=== PATIENT | male | born 1955 | race Caucasian/White ===

== ENCOUNTER 2017-03-02 10:36 | Emergency (ER) | payer OTHER ==
[~2017-03-02] VITALS: Ht 170.2 cm; Wt 84.7 kg
[~2017-03-02 10:36] MED LIST: ALL300 PO; AMT25 PO; FLNIN NAE; LATA0.5S OPB; LOVA40TA4 PO; MOME100A INH; OMEP40CA PO
[2017-03-02 10:48] VITALS: TEMP 36.7; Ht 170.2 cm; Wt 84.7 kg
[2017-03-02] MEDS ORDERED: ONDANSETRON INJ 2 MG/ML 2 ML VIAL IV STA (11:13)
[2017-03-02] MEDS ORDERED: SODIUM CHLORIDE 0.9% 1000ML 1,000 ML IV STA (11:13)
--- NOTE | 2017-03-02 11:32 | EMERGENCY ROOM VISIT NOTE ---
History Report prepared by Steven: Nela Macdonald Under the Supervision of: Dr. Chandrakant Pruitt D.O. First contact with patient: 10:59 Chief Complaint: FACIAL PAIN/INJURY Stated Complaint: JAW PAIN History of Present Illness The patient is a 61 year old male who presents to the Emergency Room with complaints of worsening jaw pain starting 3 days ago. He describes his pain as an ache. It is on the right side of his jaw around his ear. He was unable to sleep because of the pain. The pain feels like a toothache, but he does not have any teeth on that side. He has not had this pain before. He called his doctor who referred him to the ED over concerns of abscess. He has been taking extra strength Tylenol to some relief. He last took some at 0200. He has pain with eating. He denies any drainage from the cheek, fever, chills, nausea, or vomiting. He is on aspirin. He is not on any other blood thinners. 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 Source of History: patient Onset: 3 days ago Position: jaw (right) Quality: ache Timing: worsening Modifying Factors (Worsening): eating Modifying Factors (Relieving): tylenol Associated Symptoms: No fevers, No chills, No nausea, No vomiting Note: Pt denies drainage from cheek. Review of Systems See HPI for pertinent positives & negatives. A total of 10 systems reviewed and were otherwise negative. Past Medical & Surgical Medical Problems: (1) Sarcoid (2) Warthin's tumor Family History Diabetes mellitus Gallbladder disease Heart disease Hypertension Social History Smoking Status: Never Smoker Marital Status: Housing Status: lives with family Current/Historical Medications Scheduled Aclidinium [place] (Tudorza Pressair), 1 PUFF INH BID Allopurinol (Zyloprim), 300 MG PO DAILY Amitriptyline HCl (Elavil), 25 MG PO HS Clarithromycin (Biaxin), 1 TAB PO BID Fluticasone Propionate (Nasal) (Flonase Allergy Relief), 2 SPRAYS ROXANNA DAILY Latanoprost (Xalatan 0.005% Oph Stephanie), 1 DROP OPB HS Lovastatin (Mevacor), 40 MG PO DAILY Mometasone Furoate-Formoterol (Dulera 100/5 Mcg), 1 AER INH BID Omeprazole (Prilosec), 40 MG PO BID Scheduled PRN Albuterol Hfa (Ventolin Hfa), 2 PUFFS INH Q6H PRN for SOB/Wheezing Albuterol Sulf (Proventil 0.083% 2.5MG/3ML), 2.5 MG INH QID PRN for SOB/Wheezing Oxycodone Immediate Rel Tab (Roxicodone Ir), 1-2 TAB PO Q4H PRN for Severe Pain Allergies Coded Allergies: Clavulanic Acid (Verified Allergy, Unknown, BETA-LACTAMASE INHIBITOR ALLERGY, 03/02/17) Doxycycline (Verified Allergy, Unknown, `, 03/02/17) Fluconazole (Verified Allergy, Unknown, 03/02/17) Penicillins (Verified Allergy, Unknown, 03/02/17) Pneumococcal Vaccine (Verified Allergy, Unknown, 03/02/17) Physical Exam Vital Signs Date Time Temp Pulse Resp B/P (MAP) Pulse Ox O2 Delivery O2 Flow Rate FiO2 03/02/17 16:15 82 20 145/91 95 03/02/17 15:35 86 20 146/102 94 Room Air 03/02/17 12:35 82 03/02/17 12:32 81 18 135/91 93 Room Air 03/02/17 11:45 87 20 164/108 93 Room Air 03/02/17 10:48 36.7 97 18 155/106 97 Room Air Physical Exam GENERAL: Patient is awake, alert, very anxious appearing, appears uncomfortable EYES: The conjunctivae are clear. The pupils are round and reactive. EARS, NOSE, MOUTH AND THROAT: The nose is without any evidence of any deformity. Significant swelling over the right parotid, tenderness over the right parotid, oral mucosa appears normal NECK: The neck is supple, ROM is intact, tenderness over the right anterior cervical lymph node chain RESPIRATORY: Normal respiratory effort is noted there is no evidence of wheezing rhonchi or rales CARDIOVASCULAR: Regular rate and rhythm noted there no murmurs rubs or gallops normal S1 normal S2 GASTROINTESTINAL: The abdomen is soft. Bowel sounds are present in all quadrants. Abdomen is nontender MUSCULOSKELETAL/EXTREMITIES: There is no evidence of gross deformity full range of motion is noted in the hips and shoulders SKIN: There is no obvious evidence of any rash. There are no petechiae, pallor or cyanosis noted. NEUROLOGIC: Patient is awake alert and oriented x3 Medical Decision & Procedures ER Provider Diagnostic Interpretation: X-ray results as stated below per interpretation by me and the radiologist. Radiology results as stated below per my review and radiologist interpretation: SINGLE VIEW CHEST CLINICAL HISTORY: Right-sided facial pain. FINDINGS: An AP, portable, upright chest radiograph is compared to study dated 06/26/2015. The examination is degraded by portable technique and patient rotation. The heart is enlarged. The pulmonary vasculature is noncongested. There are low lung volumes. Chronic interstitial thickening is unchanged. No airspace consolidation, large pleural effusion, or pneumothorax is seen. The skeletal structures are osteopenic. The bony thorax is grossly intact. Calcific tendinopathy is noted in left shoulder. IMPRESSION: Cardiomegaly and low lung volumes. There is no acute cardiopulmonary abnormality. Electronically signed by: Lucien Tse M.D. 03/02/2017 12:02 PM Dictated Date/Time: 03/02/2017 12:01 PM ADDENDUM ADDENDUM: There is a prominent superficial veins seen within the posterior substance of the right parotid gland, best seen on axial image #58. There is mild haziness identified around the vessel. This is of indeterminant significance, if any. Ultrasound of the right parotid gland could be considered for further assessment to assess for superficial venous thrombus. Electronically signed by: Lucien Tse M.D. 03/02/2017 2:00 PM Dictated Date/Time: 03/02/2017 1:[address] SCAN OF THE FACIAL BONES WITHOUT IV CONTRAST CLINICAL HISTORY: Right-sided facial pain and swelling. Difficulty with chewing. COMPARISON STUDY: No priors. TECHNIQUE: High-resolution CT scan of the facial bones is performed. Images are reviewed in the axial, sagittal, and coronal planes. IV contrast was not administered for this examination. CT DOSE: 811.10 mGy.cm FINDINGS: The skeletal structures are well mineralized. There is no evidence of facial bone fracture. The bony orbits are intact and the orbital contents are within normal limits. The zygomatic arches, nasal bones, and pterygoid plates are preserved. The maxilla and mandible are intact. Mild arthritic change is seen in the temporomandibular joints. There are no layering blood products within the paranasal sinuses. Trace mucosal thickening is seen throughout the paranasal sinuses. There is a trace left mastoid effusion. The right mastoid air cells are clear. The visualized calvarium and upper cervical spine are maintained. Partially imaged brain parenchyma is within normal limits. The majority of the teeth are missing. No periapical lucency is seen involving the remaining teeth. There is a 1.5 cm nodule incidentally noted in the left parotid gland on axial image #46 of 168. IMPRESSION: 1. No acute facial bone abnormality is identified. No facial bone fracture is seen. 2. The majority of the teeth are absent. No periapical lucency is seen involving the remaining teeth. 3. There is a 1.5 cm nodule incidentally noted in the left parotid gland. This is pathologically indeterminant, and could represent an intraparotid lymph node or possibly a primary parotid lesion such as Warthin's tumor or pleomorphic adenoma. Follow-up with a nonemergent ultrasound of the left parotid gland and outpatient ENT consultation is recommended. Electronically signed by: Lucien Tse M.D. 03/02/2017 1:00 PM Dictated Date/Time: 03/02/2017 12:55 PM ULTRASOUND OF THE PAROTID GLANDS CLINICAL HISTORY: Right facial swelling. Left parotid nodule. COMPARISON STUDY: Facial bone CT dated 03/02/2017. Ultrasound of the neck dated 11/04/2014. TECHNIQUE: Real-time, grayscale, and color Doppler sonography of the parotid glands is performed. Images reviewed in the transverse and longitudinal planes. FINDINGS: Right parotid gland: The right parotid gland is normal in size and homogeneous in echotexture. There is an irregular/tubular appearing hypoechoic and nonvascular structure identified in the posterior aspect of the parotid gland. When correlated with today's CT scan this likely represent thrombosed superficial vein. A tiny adjacent artery is identified. A 2.5 mm nodule in the right parotid is incidentally noted. Left parotid gland: The left parotid gland is normal in size and homogeneous in echotexture. There is an ovoid hypoechoic nodule within the left parotid gland measuring up to 1.4 cm. Internal flow was seen on color imaging. Additional subcentimeter hypoechoic nodules are noted and likely represent intraparotid lymph nodes. IMPRESSION: 1. Findings in the right parotid gland likely represent a thrombosed superficial vein within the posterior substance of the gland. Precautionary sonographic follow-up in 2-3 months time is recommended for reassessment. 2. There is an indeterminant 1.4 cm hypoechoic nodule in the left parotid gland. Difference considerations include an intraparotid lymph node versus a primary parotid nodule such as Warthin's tumor or pleomorphic adenoma. Nonemergent ENT follow-up is recommended. Electronically signed by: Lucien Tse M.D. 03/02/2017 3:47 PM Dictated Date/Time: 03/02/2017 3:34 PM Laboratory Results 03/02/17 11:40 Red Blood Count 5.23, Mean Corpuscular Volume 88.5, Mean Corpuscular Hemoglobin 29.1, Mean Corpuscular Hemoglobin Concent 32.8, Mean Platelet Volume 8.6, Neutrophils (%) (Auto) 53.2, Lymphocytes (%) (Auto) 31.9, Monocytes (%) (Auto) 11.0, Eosinophils (%) (Auto) 3.1, Basophils (%) (Auto) 0.4, Neutrophils # (Auto ) 5.97, Lymphocytes # (Auto) 3.58, Monocytes # (Auto) 1.24, Eosinophils # (Auto ) 0.35, Basophils # (Auto) 0.05 03/02/17 11:40 Test 03/02/17 11:40 White Blood Count 11.23 K/uL (4.8-10.8) Red Blood Count 5.23 M/uL (4.7-6.1) Hemoglobin 15.2 g/dL (14.0-18.0) Hematocrit 46.3 % (42-52) Mean Corpuscular Volume 88.5 fL (80-100) Mean Corpuscular Hemoglobin 29.1 pg (25-34) Mean Corpuscular Hemoglobin Concent 32.8 g/dl (32-36) Platelet Count 331 K/uL (130-400) Mean Platelet Volume 8.6 fL (7.4-10.4) Neutrophils (%) (Auto) 53.2 % Lymphocytes (%) (Auto) 31.9 % Monocytes (%) (Auto) 11.0 % Eosinophils (%) (Auto) 3.1 % Basophils (%) (Auto) 0.4 % Neutrophils # (Auto) 5.97 K/uL (1.4-6.5) Lymphocytes # (Auto) 3.58 K/uL (1.2-3.4) Monocytes # (Auto) 1.24 K/uL (0.11-0.59) Eosinophils # (Auto) 0.35 K/uL (0-0.5) Basophils # (Auto) 0.05 K/uL (0-0.2) RDW Standard Deviation 45.8 fL (36.4-46.3) RDW Coefficient of Variation 14.1 % (11.5-14.5) Immature Granulocyte % (Auto) 0.4 % Immature Granulocyte # (Auto) 0.04 K/uL (0.00-0.02) Prothrombin Time 10.5 SECONDS (9.0-12.0) Prothromb Time International Ratio 1.0 (0.9-1.1) Activated Partial Thromboplast Time 26.9 SECONDS (21.0-31.0) Partial Thromboplastin Ratio 1.0 Anion Gap 5.0 mmol/L (3-11) Est Creatinine Clear Calc Drug Dose 79.7 ml/min Estimated GFR () 93.1 Estimated GFR (Non- 80.3 BUN/Creatinine Ratio 13.4 (10-20) Calcium Level 9.1 mg/dl (8.5-10.1) Total Bilirubin 0.2 mg/dl (0.2-1) Direct Bilirubin 0.1 mg/dl (0-0.2) Aspartate Amino Transf (AST/SGOT) 23 U/L (15-37) Alanine Aminotransferase (ALT/SGPT) 40 U/L (12-78) Alkaline Phosphatase 86 U/L (45-117) Total Protein 7.7 gm/dl (6.4-8.2) Albumin 3.5 gm/dl (3.4-5.0) Amylase Level 58 U/L (25-115) Lipase 187 U/L (73-393) Laboratory results per my review. Medications Administered Medications (Trade) Dose Ordered Sig/Alpesh Route Start Time Stop Time Status Last Admin Dose Admin Sodium Chloride 1,000 ml @ 999 mls/hr Q1H1M STAT IV 03/02/17 11:13 03/02/17 12:13 DC 03/02/17 11:38 999 MLS/HR Ondansetron HCl (Zofran Inj) 4 mg NOW STAT IV 03/02/17 11:13 03/02/17 11:15 DC 03/02/17 11:35 4 MG Morphine Sulfate (MoRPHine SULFATE INJ) 4 mg Q15M PRN IV 03/02/17 11:15 03/02/17 16:41 DC 03/02/17 12:41 4 MG Oxycodone HCl (Roxicodone Immediate Rel 5MG Home Pack) 1 homepack UD ONCE PO 03/02/17 16:15 03/02/17 16:16 DC 03/02/17 16:20 1 HOMEPACK Clarithromycin (Biaxin Tab) 500 mg NOW ONCE PO 03/02/17 16:15 03/02/17 16:16 DC 03/02/17 16:20 500 MG ED Course 1110: The patient was evaluated in room B3B. A complete history and physical examination were performed. 1113: Zofran Inj 4 mg IV, NSS 1000 ml @ 999 mls/hr IV. 1115: Morphine Sulfate 4 mg IV. 1328: I discussed the patient's case with Dr. Kennedy, ENT private practice. He recommends Biaxin and follow up in the office. 1549: Upon reevaluation, the patient is resting comfortably. I discussed the results and treatment plan with him. He verbalized agreement of the treatment plan. He was discharged home. 1615: Clarithromycin 500 mg PO, Oxycodone HCl 1 homepack PO. Medical Decision Medication Reconciliation: I attest that I have personally reviewed the patient' s current medications list. Patient was found to have a slightly elevated blood pressure due to circumstances. I do not believe that the patient requires hypertension monitoring. The patient is a 61-year-old male who presented to the emergency department for evaluation of right facial swelling. The patient is a history of sarcoid in this could be a sequelae of sarcoid but he was sent to the emergency department by his primary care physician for imaging. The patient had a CT of the face which led to an ultrasound. It still clinically could be consistent with parotitis but they felt there could also be some area of thrombophlebitis in the right parotid region but also a lymph node in the left parotid region. I discussed the patient's laboratory radiographic studies with him. I also discussed his case with the on-call ear nose and throat physician. The patient was started on antibiotic as well as pain medication. He has agreed to follow- up with your nose and throat physician this week for further testing. He was encouraged to return to the emergency department immediately if symptoms change worsen or the need arises. Consults Time Called: 1315 Consulting Physician: Dr. Kennedy, ENT private practice Returned Call: [phone] I discussed the patient's case with him. He recommends Biaxin and follow up in the office. Impression Primary Impression: Parotitis Scribe Attestation The scribe's documentation has been prepared under my direction and personally reviewed by me in its entirety. I confirm that the note above accurately reflects all work, treatment, procedures, and medical decision making performed by me. Departure Information Dispostion Home / Self-Care Prescriptions Clarithromycin (BIAXIN) 500 Mg Tab 1 TAB PO BID for 7 Days, #14 TAB Prov: Chandrakant Pruitt, DO 03/02/17 Oxycodone Immediate Rel Tab (ROXICODONE IR) 5 Mg Tab 1-2 TAB PO Q4H Y for Severe Pain, #24 TAB Prov: Chandrakant Pruitt, DO 03/02/17 Referrals Papi Yancey D.O. (PCP) Sunil Choi D.O. Kao, Yi How, M.D. Forms HOME CARE DOCUMENTATION FORM, IMPORTANT VISIT INFORMATION Patient Instructions ED Submandibular Gland Infec, [facility] Additional Instructions Call the ENT physician in the morning to schedule a follow up appointment. Continue all medcations as prescribed.
[2017-03-02] MEDS: MoRPHine SULFATE 4 MG/ML 1 ML CARP\\VIAL IV PRN ×2 (11:36→12:41)
[2017-03-02 11:55] LABS: BASO % 0.4 %; BASO ABS # 0.05 K/uL (0-0.2); COMPLETE YES; EOS % 3.1 %; HEMATOCRIT 46.3 % (42-52); IG% 0.4 %; LYMPH % 31.9 %; LYMPH ABS # 3.58 K/uL (1.2-3.4); MEAN CELL VOLUME 88.5 fL (80-100); MEAN CORPUSCULAR HEMOGLOBIN 29.1 pg (25-34); MEAN CORPUSCULAR HGB CONC 32.8 g/dl (32-36); MEAN PLATELET VOLUME 8.6 fL (7.4-10.4); NEUT % 53.2 %; PLATELET COUNT 331 K/uL (130-400); RED BLOOD COUNT 5.23 M/uL (4.7-6.1); WHITE BLOOD COUNT 11.23 K/uL (4.8-10.8)
--- NOTE | 2017-03-02 12:03 | DIAGNOSTIC IMAGING REPORT ---
SINGLE VIEW CHEST CLINICAL HISTORY: Right-sided facial pain. FINDINGS: An AP, portable, upright chest radiograph is compared to study dated 06/26/2015. The examination is degraded by portable technique and patient rotation. The heart is enlarged. The pulmonary vasculature is noncongested. There are low lung volumes. Chronic interstitial thickening is unchanged. No airspace consolidation, large pleural effusion, or pneumothorax is seen. The skeletal structures are osteopenic. The bony thorax is grossly intact. Calcific tendinopathy is noted in left shoulder. IMPRESSION: Cardiomegaly and low lung volumes. There is no acute cardiopulmonary abnormality. Electronically signed by: Lucien Tse M.D. 03/02/2017 12:02 PM Dictated Date/Time: 03/02/2017 12:01 PM
[2017-03-02 12:05] LABS: PROTHROMBIN TIME (PATIENT) 10.5 SECONDS (9.0-12.0)
[2017-03-02 12:12] LABS: BUN/CREATININE RATIO 13.4 (10-20); CALCIUM 9.1 mg/dl (8.5-10.1); POTASSIUM 4.1 mmol/L (3.5-5.1)
--- NOTE | 2017-03-02 13:01 | DIAGNOSTIC IMAGING REPORT ---
ADDENDUM ADDENDUM: There is a prominent superficial veins seen within the posterior substance of the right parotid gland, best seen on axial image #58. There is mild haziness identified around the vessel. This is of indeterminant significance, if any. Ultrasound of the right parotid gland could be considered for further assessment to assess for superficial venous thrombus. Electronically signed by: Lucien Tse M.D. 03/02/2017 2:00 PM Dictated Date/Time: 03/02/2017 1:[address] SCAN OF THE FACIAL BONES WITHOUT IV CONTRAST CLINICAL HISTORY: Right-sided facial pain and swelling. Difficulty with chewing. COMPARISON STUDY: No priors. TECHNIQUE: High-resolution CT scan of the facial bones is performed. Images are reviewed in the axial, sagittal, and coronal planes. IV contrast was not administered for this examination. CT DOSE: 811.10 mGy.cm FINDINGS: The skeletal structures are well mineralized. There is no evidence of facial bone fracture. The bony orbits are intact and the orbital contents are within normal limits. The zygomatic arches, nasal bones, and pterygoid plates are preserved. The maxilla and mandible are intact. Mild arthritic change is seen in the temporomandibular joints. There are no layering blood products within the paranasal sinuses. Trace mucosal thickening is seen throughout the paranasal sinuses. There is a trace left mastoid effusion. The right mastoid air cells are clear. The visualized calvarium and upper cervical spine are maintained. Partially imaged brain parenchyma is within normal limits. The majority of the teeth are missing. No periapical lucency is seen involving the remaining teeth. There is a 1.5 cm nodule incidentally noted in the left parotid gland on axial image #46 of 168. IMPRESSION: 1. No acute facial bone abnormality is identified. No facial bone fracture is seen. 2. The majority of the teeth are absent. No periapical lucency is seen involving the remaining teeth. 3. There is a 1.5 cm nodule incidentally noted in the left parotid gland. This is pathologically indeterminant, and could represent an intraparotid lymph node or possibly a primary parotid lesion such as Warthin's tumor or pleomorphic adenoma. Follow-up with a nonemergent ultrasound of the left parotid gland and outpatient ENT consultation is recommended. Electronically signed by: Lucien Tse M.D. 03/02/2017 1:00 PM Dictated Date/Time: 03/02/2017 12:55 PM
[2017-03-02] MEDS ORDERED: FLUT0.15 NAE (13:41)
[2017-03-02] MEDS ORDERED: ALLO300T2 PO (13:41)
[2017-03-02] MEDS ORDERED: OMEP40CA41 PO (13:41)
[2017-03-02] MEDS ORDERED: AMIT-203 PO (13:41)
[2017-03-02] MEDS ORDERED: ACLI1AER3 INH (13:45)
[2017-03-02] MEDS ORDERED: VNTHFA/IN INH (13:45)
[2017-03-02] MEDS ORDERED: ALBINS/ INH (13:45)
[2017-03-02] MEDS ORDERED: CLAR500T3 PO (13:48)
[2017-03-02] MEDS ORDERED: OXYC1TAB3 PO (13:48)
--- NOTE | 2017-03-02 15:48 | DIAGNOSTIC IMAGING REPORT ---
ULTRASOUND OF THE PAROTID GLANDS CLINICAL HISTORY: Right facial swelling. Left parotid nodule. COMPARISON STUDY: Facial bone CT dated 03/02/2017. Ultrasound of the neck dated 11/04/2014. TECHNIQUE: Real-time, grayscale, and color Doppler sonography of the parotid glands is performed. Images reviewed in the transverse and longitudinal planes. FINDINGS: Right parotid gland: The right parotid gland is normal in size and homogeneous in echotexture. There is an irregular/tubular appearing hypoechoic and nonvascular structure identified in the posterior aspect of the parotid gland. When correlated with today's CT scan this likely represent thrombosed superficial vein. A tiny adjacent artery is identified. A 2.5 mm nodule in the right parotid is incidentally noted. Left parotid gland: The left parotid gland is normal in size and homogeneous in echotexture. There is an ovoid hypoechoic nodule within the left parotid gland measuring up to 1.4 cm. Internal flow was seen on color imaging. Additional subcentimeter hypoechoic nodules are noted and likely represent intraparotid lymph nodes. IMPRESSION: 1. Findings in the right parotid gland likely represent a thrombosed superficial vein within the posterior substance of the gland. Precautionary sonographic follow-up in 2-3 months time is recommended for reassessment. 2. There is an indeterminant 1.4 cm hypoechoic nodule in the left parotid gland. Difference considerations include an intraparotid lymph node versus a primary parotid nodule such as Warthin's tumor or pleomorphic adenoma. Nonemergent ENT follow-up is recommended. Electronically signed by: Lucien Tse M.D. 03/02/2017 3:47 PM Dictated Date/Time: 03/02/2017 3:34 PM
[2017-03-02 16:15] VITALS: BP 145/91; PULSE 82; O2SAT 95
[2017-03-02] MEDS ORDERED: CLARITHROMYCIN 500 MG TAB PO ONE (16:15)
[2017-03-02] MEDS ORDERED: OXYCODONE IR HOME PACK PO ONE (16:15)
== END 2017-03-02 16:20 | disposition home or self-care (01) ==
LOC: C.EDB 10:38
DX: K11.20 Sialoadenitis, unspecified (principal); D86.9 Sarcoidosis, unspecified; C08.9 Malignant neoplasm of major salivary gland, unspecified; Z83.3 Family history of diabetes mellitus; Z82.49 Family history of ischemic heart disease and other diseases of the circulatory system

== ENCOUNTER 2020-11-18 13:25 | Inpatient (IN) ==
[2020-11-18 14:00] LABS: Basophils # (auto) 0.01 K/uL (0-0.2); Basophils % (auto) 0.1 %; Eosinophils # (auto) 0.02 K/uL (0-0.5); Eosinophils % (auto) 0.1 %; Hematocrit (blood only) 39.5 % (42-52); Immature Granulocytes # (auto) 0.08 K/uL (0.00-0.02); Immature Granulocytes % (auto) 0.5 %; Lymphocytes # (auto) 4.41 K/uL (1.2-3.4); Mean Corpuscular Hemoglobin 29.9 pg (25-34); Mean Corpuscular Hgb Conc 32.9 g/dL (32-36); Mean Corpuscular Volume 90.8 fL (80-100); Mean Platelet Volume 8.4 fL (7.4-10.4); Monocytes # (auto) 1.62 K/uL (0.11-0.59); Monocytes % (auto) 10.3 %; Neutrophils # (auto) 9.61 K/uL (1.4-6.5); Platelet Count 312 K/uL (130-400); RDW Coefficient of Variation 14.7 % (11.5-14.5); Red Blood Count 4.35 M/uL (4.7-6.1); White Blood Count 15.75 K/uL (4.8-10.8)
[2020-11-18] MEDS ORDERED: ALBUT/IPRATROP 3MG/0.5MG NEB 3 ML VIAL NEB STA (14:00)
[2020-11-18 14:10] LABS: Partial Thromboplastin Ratio 0.9; Partial Thromboplastin Time 23.8 Seconds (21.0-31.0)
[2020-11-18] MEDS ORDERED: methylPREDNISolone 125 MG/2 ML VIAL IV STA (14:13)
[2020-11-18 14:18] LABS: Alanine Aminotransferase 23 U/L (12-78); Albumin Level 2.5 gm/dl (3.4-5.0); Aspartate Aminotransferase 24 U/L (15-37); BUN Creatinine Ratio 15.3 (10-20); Blood Urea Nitrogen 18 mg/dl (7-18); Carbon Dioxide 24 mmol/L (21-32); Chloride 109 mmol/L (98-107); Creatinine Clr Calc Pharmacy 67.9 ml/min; Est GFR (African American) 74.9; Est GFR (Non-African American) 64.6; Glucose 133 mg/dl (70-99); Magnesium 2.1 mg/dl (1.8-2.4); Sodium 139 mmol/L (136-145)
--- NOTE | 2020-11-18 14:22 | Emergency Department Note ---
Impression & Plan Hypoxia, SOB (shortness of breath), Pneumonia, Wheezing ED Provider Note NAME: MAGDIEL BENJAMIN AGE: 65 SEX: M : 1955 ARRIVES VIA: Ambulance INFORMANT: [Patient] ED PROVIDER(S): [Lucien Baez MD] CHIEF COMPLAINT: Short of breath HISTORY OF PRESENT ILLNESS: The patient is a 65-year-old male who states that he had prostate surgery at [facility]. He was discharged yesterday. Today, he began feeling short of breath. He was breathing quickly. He summoned the ambulance and was brought for evaluation. No medications given in route. The patient states that his abdominal incisions are doing well, he has minimal pain from the surgery. The patient states that he does have a Sahni catheter in place since the surgery. The patient denies any chest pain. There has been no cough or fever. He has been vaccinated for COVID-19 and tested negative before his surgical work. The patient does have sarcoid. He is not sure if he has a history of COPD or not. He is not a smoker. He does have some inhalers to use for his lungs at home. Of note, the patient is currently on Cipro. This was prescribed as he left the hospital. He believes it is because of his prostate surgery. REVIEW OF SYSTEMS: See HPI for pertinent positives and negatives. A total of ten systems were reviewed and were otherwise negative. PMHx/PSHx: See Below SOCIAL HISTORY: See Below. PHYSICAL EXAM: GENERAL: Patient is in mild respiratory distress. HEENT: No acute trauma, normocephalic atraumatic, mucous membranes moist, no nasal congestion, no scleral icterus. NECK: No stridor, no adenopathy, no meningismus, trachea is midline. LUNGS: Increased respiratory rate, no rales, he does have bilateral wheezing. Mild respiratory distress. HEART: Without murmurs gallops or rubs, regular rate and rhythm. ABDOMEN: Soft, mildly diffusely tender, bowel sounds positive, no hernias, no peritonitis. Surgical incisions healing without significant erythema or drainage. EXTREMITIES: No cyanosis or edema, full range of motion of all the joints without pain or difficulty, no signs for acute trauma. NEUROLOGIC: Oriented x 3, no acute motor or sensory deficits, no focal weakness. SKIN: No rash, no jaundice, no diaphoresis. DIFFERENTIAL DIAGNOSIS: Reactive airway disease, pneumonia, pneumothorax, COPD, CHF, infection, cardiac ischemia, pulmonary embolism, bronchitis, musculoskeletal, gastrointestinal, as well as other pathologies. EMERGENCY DEPARTMENT COURSE/PROCEDURES: ECG: Indication was shortness of breath. The ECG shows a sinus tachycardia with a rate of 103. There is a right bundle branch block. No concerning ST elevation, no PVCs. The QTc is 526. Compared to an ECG from 21 June 2019, the right bundle branch block is new. The rate has increased. Continuous Cardiac Monitoring: An order was placed for continuous cardiac monitoring. The monitor shows a rate of 93 with normal sinus rhythm. Critical Care Note: I have personally spent 39 minutes of critical care time in the direct management of this patient. This includes bedside care, i nterpretation of diagnostic studies, and testing, discussion with consultants, patient, and family members, and other required patient management activities. This 39 minutes is in excess of all separately billable procedures. MEDICAL DECISION MAKING: There is a moderate leukocytosis which could be consistent with infection. No worrisome anemia. There is a normal platelet count. No coagulopathy. Renal panel testing does not show kidney failure or significant electrolyte abnormality. No liver enzyme elevation. Procalcitonin level was not elevated. Lactic acid level was not elevated making sepsis less likely. ECG shows a sinus tachycardia, no acute ischemia. Cardiac enzyme testing x1 is not consistent with acute cardiac injury. Covid and influenza testing returned negative. Chest film did not show pneumonia or CHF. There was no pneumothorax. Chest CT showed a potential old PE, nothing felt acute. There were some areas of congestion consistent with bronchitis and/or bronchiolitis. Patient was hypoxic when he arrived, he seemed short of breath. He was wheezing. Patient received a DuoNeb. He was given IV ceftriaxone as empiric antibiotic coverage. He was given IV Solu-Medrol to help with the wheezing. The patient is requiring oxygen. He presents wheezing. He is hypoxic. He does have findings of bronchiolitis or maybe bronchitis on CT imaging. Certainly, a developing pneumonia is a concern. I do think the patient requires a hospital stay. I spoke to the patient and case management. The on-call hospitalist was consulted. Past Med/Surg History Medical History Hyperlipidemia Interstitial lung disease LETICIA on CPAP Prostate cancer Pulmonary sarcoidosis Sarcoid Warthin's tumor Surgical History (Updated 11/18/20 @ 18:02 by Kerry Salomon PA-C) H/O vasectomy History of lumbar surgery Hx of colonoscopy with polypectomy S/P prostatectomy S/P skin neoplasm resection Family History (Updated 11/18/20 @ 18:03 by Kerry Salomon PA-C) Mother Hypertension Glaucoma Diabetes Father Prostate cancer Diabetes Coronary heart disease ID Sister Glaucoma Other No significant family history Social History Smoking Status: Former smoker packs per day: 2; Years Smoked: 25; Hx Alcohol Use: No Hx Substance Use: No Preferred Language: Spanish Communication Ability: Effective Pharmacy Intake Coordinator Required: No Beliefs That Will Affect Care: None Current Living Situation: Spouse Other Information That Helps Us Care for You: No Feels Safe at Home: Yes Safety Concerns: Feels Safe At This Time Assistive Devices: CPAP Allergies Allergies Allergy/AdvReac Type Severity Reaction Status Date / Time clavulanic acid Allergy Unknown BETA-LACTAMASE Verified 11/18/20 14:35 INHIBITOR ALLERGY doxycycline Allergy Unknown ` Verified 11/18/20 14:35 fluconazole Allergy Unknown Verified 11/18/20 14:35 Penicillins Allergy Unknown Verified 11/18/20 14:35 pneumococcal vaccine Allergy Unknown Verified 11/18/20 14:35 Home Meds Home Medications Medication Instructions Recorded Confirmed albuterol sulfate 2 inh INHALATION QID PRN 06/21/19 11/18/20 allopurinol 300 mg PO DAILY 06/21/19 11/18/20 amitriptyline 25 mg PO HS 06/21/19 11/18/20 aspirin 81 mg PO QAM 06/21/19 11/18/20 azelastine 2 spray INTRANASAL BID PRN 06/21/19 11/18/20 latanoprost 1 drp OPB PM 06/21/19 11/18/20 metoprolol succinate 50 mg PO DAILY 06/21/19 11/18/20 mometasone-formoterol 2 inh INHALATION BID 06/21/19 11/18/20 omeprazole 20 mg PO QAM 06/21/19 11/18/20 rosuvastatin 20 mg PO DAILY 06/21/19 11/18/20 tiotropium bromide [Spiriva with 1 cap INHALATION DAILY 06/21/19 11/18/20 HandiHaler] cholecalciferol (vitamin D3) 25 mcg PO DAILY 11/18/20 11/18/20 ciprofloxacin HCl 500 mg PO BID 11/18/20 11/18/20 docusate sodium 100 mg PO BID 11/18/20 11/18/20 losartan 50 mg PO DAILY 11/18/20 11/18/20 oxycodone-acetaminophen 1 tab PO Q6 PRN 11/18/20 11/18/20 Results & Data (ED) Vital Signs Vital Signs - 24 hr 11/18/20 13:17 11/18/20 13:31 11/18/20 13:32 Temperature 36.9 C Temperature Source Oral Pulse Rate 105 H 106 H Pulse Rate [Left Finger] Pulse Rate from SpO2 Sensor 105 H Respiratory Rate 27 H 24 Respiratory Effort / Characteristics Labored Labored Respiratory Depth Shallow Respiratory Pattern Tachypnea Rapid/Shallow Blood Pressure 121/91 121/91 Blood Pressure Mean 101 101 Pulse Oximetry 93 90 92 Oxygen Delivery Method Aerosol Mask Room Air Oxygen Flow Rate 5 Sepsis Recent Fever Within 48 Hours No Sepsis New/Unexplained Change in Mental Status No Sepsis Action Taken by Nursing MD Previously Notified Pulse Oximetry Post Tiitration 97 11/18/20 13:49 11/18/20 14:00 11/18/20 14:06 Temperature Temperature Source Pulse Rate 96 H Pulse Rate [Left Finger] 93 H Pulse Rate from SpO2 Sensor 96 H Respiratory Rate 40 H 26 H 20 Respiratory Effort / Characteristics Labored Moaning Respiratory Depth Respiratory Pattern Blood Pressure 117/76 Blood Pressure Mean 89 Pulse Oximetry 97 98 98 Oxygen Delivery Method Oxymask Oxymask Oxygen Flow Rate 5 5 Sepsis Recent Fever Within 48 Hours Sepsis New/Unexplained Change in Mental Status Sepsis Action Taken by Nursing Pulse Oximetry Post Tiitration 11/18/20 14:30 11/18/20 15:59 11/18/20 16:00 Temperature Temperature Source Pulse Rate 107 H 97 H 95 H Pulse Rate [Left Finger] Pulse Rate from SpO2 Sensor 105 H 94 H 95 H Respiratory Rate 23 19 23 Respiratory Effort / Characteristics Respiratory Depth Respiratory Pattern Blood Pressure 110/74 144/78 H 157/81 H Blood Pressure Mean 86 100 106 Pulse Oximetry 89 L 93 97 Oxygen Delivery Method Room Air Oxymask Oxymask Oxygen Flow Rate 4 4 Sepsis Recent Fever Within 48 Hours Sepsis New/Unexplained Change in Mental Status Sepsis Action Taken by Nursing Pulse Oximetry Post Tiitration 11/18/20 16:30 11/18/20 16:31 11/18/20 17:00 Temperature Temperature Source Pulse Rate 96 H Pulse Rate [Left Finger] Pulse Rate from SpO2 Sensor 99 H 100 H 96 H Respiratory Rate Respiratory Effort / Characteristics Respiratory Depth Respiratory Pattern Blood Pressure 147/82 H 156/75 H Blood Pressure Mean 103 102 Pulse Oximetry 94 94 95 Oxygen Delivery Method Oxymask Oxymask Oxygen Flow Rate 4 4 Sepsis Recent Fever Within 48 Hours Sepsis New/Unexplained Change in Mental Status Sepsis Action Taken by Nursing Pulse Oximetry Post Tiitration 11/18/20 17:30 Temperature Temperature Source Pulse Rate 98 H Pulse Rate [Left Finger] Pulse Rate from SpO2 Sensor Respiratory Rate Respiratory Effort / Characteristics Respiratory Depth Respiratory Pattern Blood Pressure 157/88 H Blood Pressure Mean 111 Pulse Oximetry 97 Oxygen Delivery Method Oxygen Flow Rate Sepsis Recent Fever Within 48 Hours Sepsis New/Unexplained Change in Mental Status Sepsis Action Taken by Nursing Pulse Oximetry Post Tiitration Home Medications Current Medication List: was personally reviewed by me Laboratory Data Attestation: I reviewed the patient's lab results. Result diagrams: 11/18/20 13:45 11/18/20 13:45 Lab Results 11/18/20 11/18/20 11/18/20 Range/Units 13:45 13:45 13:45 WBC 15.75 H (4.8-10.8) K/uL RBC 4.35 L (4.7-6.1) M/uL Hgb 13.0 L (14.0-18.0) g/dL Hct 39.5 L (42-52) % MCV 90.8 (80-100) fL MCH 29.9 (25-34) pg MCHC 32.9 (32-36) g/dL RDW Std Deviation 49.0 H (36.4-46.3) fL RDW Coeff of Aaron 14.7 H (11.5-14.5) % Plt Count 312 (130-400) K/uL MPV 8.4 (7.4-10.4) fL Immature Gran % (Auto) 0.5 % Neut % (Auto) 61.0 % Lymph % (Auto) 28.0 % [place] % (Auto) 10.3 % Eos % (Auto) 0.1 % Baso % (Auto) 0.1 % Neut # (Auto) 9.61 H (1.4-6.5) K/uL Lymph # (Auto) 4.41 H (1.2-3.4) K/uL [place] # (Auto) 1.62 H (0.11-0.59) K/uL Eos # (Auto) 0.02 (0-0.5) K/uL Baso # (Auto) 0.01 (0-0.2) K/uL Immature Gran # (Auto) 0.08 H (0.00-0.02) K/uL PT 10.0 (9.0-12.0) Seconds INR 1.0 (0.9-1.1) APTT 23.8 (21.0-31.0) Seconds PTT Ratio 0.9 ABG pH (7.35-7.45) ABG pCO2 (35-46) mmHg ABG pO2 (80-95) mmHg ABG HCO3 (19-24) mmol/L ABG O2 Saturation (90-95) % ABG Base Excess (-9-1.8) mEq/L [place]aurus Test (Pos) Barometric Pressure mm/Hg Oxygen Given Sodium 139 (136-145) mmol/L Potassium 4.0 (3.5-5.1) mmol/L Chloride 109 H (98-107) mmol/L Carbon Dioxide 24 (21-32) mmol/L Anion Gap 6.0 (3-11) BUN 18 (7-18) mg/dl Creatinine 1.17 (0.6-1.4) mg/dl Est Cr Clr Drug Dosing 67.9 ml/min Est GFR ( Amer) 74.9 Est GFR (Non-Af Amer) 64.6 BUN/Creatinine Ratio 15.3 (10-20) Glucose 133 H (70-99) mg/dl Lactate (0.4-2.0) mmol/L Calcium 8.0 L (8.5-10.1) mg/dl Magnesium 2.1 (1.8-2.4) mg/dl Total Bilirubin 0.2 (0.2-1) mg/dl AST 24 (15-37) U/L ALT 23 (12-78) U/L Alkaline Phosphatase 76 (45-117) U/L Troponin I < 0.015 (0-0.045) ng/ml Total Protein 6.5 (6.4-8.2) gm/dl Albumin 2.5 L (3.4-5.0) gm/dl Globulin 4.0 (2.5-4.0) gm/dl Albumin/Globulin Ratio 0.6 L (0.9-2) Procalcitonin (0-0.5) ng/ml COVID-19 Eval Order SARS-CoV-2 (PCR) (Negative) Influenza Type A (PCR) (Neg) Influenza Type B (PCR) (Neg) RSV (RT-PCR) (Neg) 11/18/20 11/18/20 11/18/20 Range/Units 13:45 14:20 14:20 WBC (4.8-10.8) K/uL RBC (4.7-6.1) M/uL Hgb (14.0-18.0) g/dL Hct (42-52) % MCV (80-100) fL MCH (25-34) pg MCHC (32-36) g/dL RDW Std Deviation (36.4-46.3) fL RDW Coeff of Aaron (11.5-14.5) % Plt Count (130-400) K/uL MPV (7.4-10.4) fL Immature Gran % (Auto) % Neut % (Auto) % Lymph % (Auto) % [place] % (Auto) % Eos % (Auto) % Baso % (Auto) % Neut # (Auto) (1.4-6.5) K/uL Lymph # (Auto) (1.2-3.4) K/uL [place] # (Auto) (0.11-0.59) K/uL Eos # (Auto) (0-0.5) K/uL Baso # (Auto) (0-0.2) K/uL Immature Gran # (Auto) (0.00-0.02) K/uL PT (9.0-12.0) Seconds INR (0.9-1.1) APTT (21.0-31.0) Seconds PTT Ratio ABG pH (7.35-7.45) ABG pCO2 (35-46) mmHg ABG pO2 (80-95) mmHg ABG HCO3 (19-24) mmol/L ABG O2 Saturation (90-95) % ABG Base Excess (-9-1.8) mEq/L [place]aurus Test (Pos) Barometric Pressure mm/Hg Oxygen Given Sodium (136-145) mmol/L Potassium (3.5-5.1) mmol/L Chloride (98-107) mmol/L Carbon Dioxide (21-32) mmol/L Anion Gap (3-11) BUN (7-18) mg/dl Creatinine (0.6-1.4) mg/dl Est Cr Clr Drug Dosing ml/min Est GFR ( Amer) Est GFR (Non-Af Amer) BUN/Creatinine Ratio (10-20) Glucose (70-99) mg/dl Lactate (0.4-2.0) mmol/L Calcium (8.5-10.1) mg/dl Magnesium (1.8-2.4) mg/dl Total Bilirubin (0.2-1) mg/dl AST (15-37) U/L ALT (12-78) U/L Alkaline Phosphatase (45-117) U/L Troponin I (0-0.045) ng/ml Total Protein (6.4-8.2) gm/dl Albumin (3.4-5.0) gm/dl Globulin (2.5-4.0) gm/dl Albumin/Globulin Ratio (0.9-2) Procalcitonin 0.09 (0-0.5) ng/ml COVID-19 Eval Order CovFluRsv at [facility] SARS-CoV-2 (PCR) NEGATIVE (Negative) Influenza Type A (PCR) Negative (Neg) Influenza Type B (PCR) Negative (Neg) RSV (RT-PCR) Negative (Neg) 11/18/20 11/18/20 Range/Units 15:54 17:32 WBC (4.8-10.8) K/uL RBC (4.7-6.1) M/uL Hgb (14.0-18.0) g/dL Hct (42-52) % MCV (80-100) fL MCH (25-34) pg MCHC (32-36) g/dL RDW Std Deviation (36.4-46.3) fL RDW Coeff of Aaron (11.5-14.5) % Plt Count (130-400) K/uL MPV (7.4-10.4) fL Immature Gran % (Auto) % Neut % (Auto) % Lymph % (Auto) % [place] % (Auto) % Eos % (Auto) % Baso % (Auto) % Neut # (Auto) (1.4-6.5) K/uL Lymph # (Auto) (1.2-3.4) K/uL [place] # (Auto) (0.11-0.59) K/uL Eos # (Auto) (0-0.5) K/uL Baso # (Auto) (0-0.2) K/uL Immature Gran # (Auto) (0.00-0.02) K/uL PT (9.0-12.0) Seconds INR (0.9-1.1) APTT (21.0-31.0) Seconds PTT Ratio ABG pH 7.36 (7.35-7.45) ABG pCO2 41 (35-46) mmHg ABG pO2 89 (80-95) mmHg ABG HCO3 23 (19-24) mmol/L ABG O2 Saturation 97.0 H (90-95) % ABG Base Excess -2.5 (-9-1.8) mEq/L [place] Test Pos (Pos) Barometric Pressure 731.4 mm/Hg Oxygen Given 3.5 L Sodium (136-145) mmol/L Potassium (3.5-5.1) mmol/L Chloride (98-107) mmol/L Carbon Dioxide (21-32) mmol/L Anion Gap (3-11) BUN (7-18) mg/dl Creatinine (0.6-1.4) mg/dl Est Cr Clr Drug Dosing ml/min Est GFR ( Amer) Est GFR (Non-Af Amer) BUN/Creatinine Ratio (10-20) Glucose (70-99) mg/dl Lactate 1.2 (0.4-2.0) mmol/L Calcium (8.5-10.1) mg/dl Magnesium (1.8-2.4) mg/dl Total Bilirubin (0.2-1) mg/dl AST (15-37) U/L ALT (12-78) U/L Alkaline Phosphatase (45-117) U/L Troponin I (0-0.045) ng/ml Total Protein (6.4-8.2) gm/dl Albumin (3.4-5.0) gm/dl Globulin (2.5-4.0) gm/dl Albumin/Globulin Ratio (0.9-2) Procalcitonin (0-0.5) ng/ml COVID-19 Eval Order SARS-CoV-2 (PCR) (Negative) Influenza Type A (PCR) (Neg) Influenza Type B (PCR) (Neg) RSV (RT-PCR) (Neg) Administered Medications Albuterol (Albut/Ipratrop 3mg/0.5mg Neb 3 Ml Vial) 3 ml NEB [id number] SUZY Stop: 12/18/20 19:59 Last Admin: 11/18/20 19:54 Dose: 3 ml Documented by: [id number] Amitriptyline HCl (Amitriptyline Hcl 25 Mg Tab) 25 mg PO HS SUZY Stop: 12/18/20 20:59 Last Admin: 11/18/20 21:39 Dose: 25 mg Documented by: [id number] Docusate Sodium (Docusate Sodium 100 Mg Cap) 100 mg PO BID SUZY Stop: 12/18/20 20:59 Last Admin: 11/18/20 21:39 Dose: 100 mg Documented by: [id number] Fluticasone/Vilanterol (Fluticasone/Vilanterol 200/25mcg 14 Puffs/Inhaler) 1 puffs INH QPM SUZY; Protocol Stop: 12/18/20 20:59 Last Admin: 11/18/20 21:40 Dose: 1 puffs Documented by: [id number] Sodium Chloride (Nss 1000ml) 1,000 mls @ 100 mls/hr IV .Q10H SUZY Stop: 11/19/20 05:44 Last Admin: 11/18/20 21:08 Dose: 100 mls/hr Documented by: [id number] Methylprednisolone 40 mg/ (Syringe) 0.64 mls @ 1.5 mls/min IV BID SUZY Stop: 12/18/20 20:59 Last Admin: 11/18/20 21:39 Dose: 1.5 mls/min Documented by: [id number] Cefepime HCl 2,000 mg/ Syringe 20 mls @ 5 mls/min IV Q8H SUZY; Protocol Stop: 11/20/20 20:59 Last Admin: 11/18/20 21:07 Dose: 5 mls/min Documented by: [id number] Vancomycin HCl 2,000 mg/ (Sodium Chloride) 540 mls @ 200 mls/hr IV ONE ONE Stop: 11/19/20 00:11 Last Admin: 11/18/20 21:08 Dose: 200 mls/hr Documented by: [id number] Latanoprost (Latanoprost 0.005% Op Soln 2.5 Ml Btl) 1 drops OPB PM SUZY Stop: 12/18/20 20:59 Last Admin: 11/18/20 21:40 Dose: 1 drops Documented by: [id number] Metronidazole (Metronidazole 500 Mg Tab) 500 mg PO TID SUZY Stop: 11/20/20 20:59 Last Admin: 11/18/20 21:39 Dose: 500 mg Documented by: [id number] Polyethylene Glycol (Polyethylene (Miralax) 17 Gm Pack) 17 gm PO DAILY SUZY Stop: 12/18/20 19:18 Last Admin: 11/18/20 21:12 Dose: 17 gm Documented by: [id number] Discontinued Medications Albuterol (Albut/Ipratrop 3mg/0.5mg Neb 3 Ml Vial) 3 ml NEB NOW STA Stop: 11/18/20 14:01 Last Admin: 11/18/20 14:05 Dose: 3 ml Documented by: [id number] Ceftriaxone Sodium (Rocephin) 2,000 mg in 70 mls @ 140 mls/hr IV NOW STA Stop: 11/18/20 15:54 Last Infusion: 11/18/20 16:50 Dose: 0 mls/hr Documented by: [id number] Admin: 11/18/20 16:20 Dose: 140 mls/hr Documented by: [id number] Ioversol (Optiray 320 125ml) 118 ml IV ONCE ONE Stop: 11/18/20 14:27 Last Admin: 11/18/20 14:26 Dose: 118 ml Documented by: [id number] Methylprednisolone (Methylprednisolone 125 Mg/2 Ml Vial) 60 mg IV NOW STA Stop: 11/18/20 14:14 Last Admin: 11/18/20 14:23 Dose: 60 mg Documented by: [id number] Imaging Data Radiologist's Impression: XR chest 1V portable HISTORY: Shortness of breath. COMPARISON: Chest 06/21/2019. FINDINGS: There are low lung volumes. The heart remains mildly enlarged. There is mild diffuse interstitial thickening which is likely chronic. No new focal lung consolidations to suggest pneumonia. No evidence for pulmonary edema. IMPRESSION: No significant change compared to the prior study. No acute process. CHEST CTA for PULMONARY ARTERIES CT DOSE: 624.78 mGy.cm HISTORY: Shortness of breath. TECHNIQUE: Multiaxial CT images of the chest were performed following the intravenous administration of contrast to evaluate the pulmonary arteries. Maximal intensity projection images were also obtained. A dose lowering technique was utilized adhering to the principles of ALARA. COMPARISON STUDY: 06/21/2019. FINDINGS: Limited views of the upper abdomen demonstrate a normal liver, spleen, and adrenal glands. No pleural or pericardial effusions. Normal caliber thoracic aorta with no evidence for dissection. The heart is normal in size. There is a linear nonocclusive filling defect seen within a left lower lobe segmental/subsegmental pulmonary artery best seen on image 127. This is technically age indeterminate but favors a chronic pulmonary embolus. This was not present on the 2019 examination. No additional filling defects identified within the pulmonary arteries. A few mildly enlarged mediastinal lymph nodes remain stable. No hilar lymphadenopathy. Normal caliber esophagus. No suspicious lytic or blastic osseous lesions. No change in the irregular scarlike densities within the bilateral upper lobes. No pneumothorax. Stable 7 mm irregular nodule within the right middle lobe on image 154. Stable irregular densities are also noted within the right lower lobe. The tree-in-bud nodular opacities seen within the bilateral lower lobes have slightly progressed. There is mild bronchiectasis and bronchial wall thickening within the lungs. IMPRESSION: 1. A single linear filling defect seen within a left lower lobe segmental/subsegmental pulmonary artery. This is technically age indeterminate but favors a chronic pulmonary embolus. 2. Scattered irregular densities seen throughout the lungs. These demonstrate greater than 2 year stability and therefore favor areas of scarring. 3. Mild bronchial wall thickening and mild bronchiectasis is also likely chronic. 4. Slight increase in the tree-in-bud nodular opacities within the bilateral lower lobes. This favors an acute on chronic bronchiolitis. Discharge Plan Visit Data Chief Complaint: Hyperventilation Stated Complaint: sob ED Provider: Lucien Baez Discharge Problem: Hypoxia, SOB (shortness of breath), Pneumonia, Wheezing Patient Disposition: Admitted As Inpatient Condition: Fair Discharge Instructions Interventions: ED Discharge Assessment Last Done: 11/18/20 18:35 Discharge Problem: Pneumonia Qualifiers: Pneumonia type: due to unspecified organism Laterality: unspecified laterality Lung location: unspecified part of lung Qualified Code(s): J18.9 - Pneumonia, unspecified organism
[2020-11-18 14:23] LABS: Albumin Globulin Ratio 0.6 (0.9-2); Alkaline Phosphatase 76 U/L (45-117); Bilirubin,Total 0.2 mg/dl (0.2-1); Total Protein 6.5 gm/dl (6.4-8.2); Troponin I < 0.015 ng/ml (0-0.045)
[2020-11-18] MEDS ORDERED: OPTIRAY 320 125ml IV ONE (14:26)
--- NOTE | 2020-11-18 14:37 | XRay Report ---
XR chest 1V portable HISTORY: Shortness of breath. COMPARISON: Chest 06/21/2019. FINDINGS: There are low lung volumes. The heart remains mildly enlarged. There is mild diffuse inters titial thickening which is likely chronic. No new focal lung consolidations to suggest pneumonia. No evidence for pulmonary edema. IMPRESSION: No significant change compared to the prior study. No acute process. ACT 112: Negative or not required by law. Electronically signed by: Woody Brito M.D. 11/18/2020 2:36 PM
--- NOTE | 2020-11-18 15:17 | CT Scan Report ---
CHEST CTA for PULMONARY ARTERIES CT DOSE: 624.78 mGy.cm HISTORY: Shortness of breath. TECHNIQUE: Multiaxial CT images of the chest were performed following the intravenous administration of contrast to evaluate the pulmonary arteries. Maximal intensity projection images were also obtaine d. A dose lowering technique was utilized adhering to the principles of ALARA. COMPARISON STUDY: 06/21/2019. FINDINGS: Limited views of the upper abdomen demonstrate a normal liver, spleen, and adrenal glands. No pleural or pericardial effusions. Normal caliber thoracic aorta with no evidence for dissection. T he heart is normal in size. There is a linear nonocclusive filling defect seen within a left lower lo be segmental/subsegmental pulmonary artery best seen on image 127. This is technically age indetermin ate but favors a chronic pulmonary embolus. This was not present on the 2019 examination. No addition al filling defects identified within the pulmonary arteries. A few mildly enlarged mediastinal lymph nodes remain stable. No hilar lymphadenopathy. Normal caliber esophagus. No suspicious lytic or blast ic osseous lesions. No change in the irregular scarlike densities within the bilateral upper lobes. N o pneumothorax. Stable 7 mm irregular nodule within the right middle lobe on image 154. Stable irregu lar densities are also noted within the right lower lobe. The tree-in-bud nodular opacities seen with in the bilateral lower lobes have slightly progressed. There is mild bronchiectasis and bronchial wal l thickening within the lungs. IMPRESSION: 1. A single linear filling defect seen within a left lower lobe segmental/subsegmental pulmonary berry ry. This is technically age indeterminate but favors a chronic pulmonary embolus. 2. Scattered irregular densities seen throughout the lungs. These demonstrate greater than 2 year sta bility and therefore favor areas of scarring. 3. Mild bronchial wall thickening and mild bronchiectasis is also likely chronic. 4. Slight increase in the tree-in-bud nodular opacities within the bilateral lower lobes. This favors an acute on chronic bronchiolitis. ACT 112: Negative or not required by law. Electronically signed by: Woody Brito M.D. 11/18/2020 3:16 PM
[2020-11-18 15:23] LABS: Influenza A virus by PCR Negative (Neg); Influenza B virus by PCR Negative (Neg); RSV by PCR Negative (Neg); SARS CoV2 RNA(COVID-19) InHosp NEGATIVE (Negative)
[2020-11-18] MEDS ORDERED: cefTRIAXone SODIUM 2,000 MG/70 ML BAG IV STA (15:25)
[2020-11-18 17:41] LABS: Allen Test Pos (Pos); Base Excess ABG -2.5 mEq/L (-9-1.8); HCO3 ABG 23 mmol/L (19-24); PCO2 ABG 41 mmHg (35-46); PO2 ABG 89 mmHg (80-95); pH ABG 7.36 (7.35-7.45)
--- NOTE | 2020-11-18 17:58 | History & Physical Report ---
Date of Service November 18, 2020 Assessment & Plan (1) Acute respiratory failure with hypoxia: (2) Pulmonary sarcoidosis: (3) Interstitial lung disease: Pt presents w/ hyperventilation, shortness of breath and found hypoxic in the ED Pt currently on oxymask, reports feeling better, but still somewhat anxious and audibly wheezing Hx of pulm. sarcoid, interst. lung dis. but not using suppl. O2 at home, only uses CPAP at home for known LETICIA In ED - received albuterol, methylprednisolone, and ceftriaxone for poss. starting PNA - will obtain sputum cultx, procalcitonin - cont. methylprednisolone, home inhalers, DuoNebs, Abx - will have pt on broad spectrum Abx given recent surgery - guaifenesin, flutter valve, IS - obtain ABG - will discuss further w/ Pulmonology AM (giovanny. if pt's pulm. status not improved by then) (4) LETICIA on CPAP: Cont. CPAP at HS (5) Prostate cancer: (6) S/P prostatectomy: Pt s/p recent surg. intervention w/ Dr. Malin, discharged yesterday - concern for poss. infectious process/ bacteremia contributing to pt's clinical status - blood cultx - obtained, will follow - UA, ucltx - pending - lactate 1.2 - pt was discharged on Cipro (seems that pt's is managing his meds) - broad Abx for now - cefepime, flagyl, vanco, plan to de-escalate when cultx available / pt's clinical status improved - cont. Sahni for ow (as he was discharged by urology) Dyslipidemia - cont. home statin HTN - cont. home losartan, metoprolol Gout - cont. home allopurinol DVT ppx : SCDs Code: DNR/DNI ( as per my discussion w/ the pt) History of Present Illness Chief Complaint: Shortness of breath Primary Care Provider: aPpi Yancey DO Pt is a 65 M with hx of pulmonary sarcoidosis, interstitial lung disease, LETICIA on CPAP, prostate cancer now s/p robotic prostatectomy and b/l pelvic lymph node dissection w/ Dr. Malin, who now presents with hyperventilation and shortness of breath. Pt was at [facility] from 11/16 to 11/17 for his prostatectomy, was discharged yesterday with Sahni catheter. Pt reports that today at home as he was sitting in his living room and felt "worked up" about his surgery and Sahni catheter. He reports that he just could not breath and therefore presented into the hospital. He denies any fever, chills, chest pain. He has some mild post- surgical abd. pain. He reports he didn't have a BM since surgery. He was discharged from [place] on Cipro, pt does not recall the name but says he got medication after surgery and that his is managing his medications. Pt has hx of pulm. sarcoidosis and interst. lung disease, LETICIA on CPAP, reports he follows w/[facility] pulmonology ([place]), reports that recently did not have any breathing issues but he also says that he is always wheezy. Currently in the ED, pt hypoxic an requiring oxymask. CT PE obtained negative for acute PE but shows chronic pulm. embolus, scarring, chronic bronchiectasis and acute on chronic bronchiolitis. Blood cultx were obtained and pt was given ceftriaxone, methylprednisolone and albuterol in the ED. Allergies Allergy/AdvReac Type Severity Reaction Status Date / Time clavulanic acid Allergy Unknown BETA-LACTAMASE Verified 11/18/20 14:35 INHIBITOR ALLERGY doxycycline Allergy Unknown ` Verified 11/18/20 14:35 fluconazole Allergy Unknown Verified 11/18/20 14:35 Penicillins Allergy Unknown Verified 11/18/20 14:35 pneumococcal vaccine Allergy Unknown Verified 11/18/20 14:35 Home Medications Medication Instructions Recorded Confirmed Type albuterol sulfate 2 inh INHALATION QID PRN 06/21/19 11/18/20 History allopurinol 300 mg PO DAILY 06/21/19 11/18/20 History amitriptyline 25 mg PO HS 06/21/19 11/18/20 History aspirin 81 mg PO QAM 06/21/19 11/18/20 History azelastine 2 spray INTRANASAL BID PRN 06/21/19 11/18/20 History latanoprost 1 drp OPB PM 06/21/19 11/18/20 History metoprolol succinate 50 mg PO DAILY 06/21/19 11/18/20 History mometasone-formoterol 2 inh INHALATION BID 06/21/19 11/18/20 History omeprazole 20 mg PO QAM 06/21/19 11/18/20 History rosuvastatin 20 mg PO DAILY 06/21/19 11/18/20 History tiotropium bromide [Spiriva with 1 cap INHALATION DAILY 06/21/19 11/18/20 History HandiHaler] cholecalciferol (vitamin D3) 25 mcg PO DAILY 11/18/20 11/18/20 History ciprofloxacin HCl 500 mg PO BID 11/18/20 11/18/20 History docusate sodium 100 mg PO BID 11/18/20 11/18/20 History losartan 50 mg PO DAILY 11/18/20 11/18/20 History oxycodone-acetaminophen 1 tab PO Q6 PRN 11/18/20 11/18/20 History Past Med/Surg History Medical History (Updated 11/18/20 @ 18:21 by Jorge Ca MD) Hyperlipidemia Interstitial lung disease LETICIA on CPAP Prostate cancer Pulmonary sarcoidosis Sarcoid Warthin's tumor Surgical History (Updated 11/18/20 @ 18:02 by Kerry Salomon PA-C) H/O vasectomy History of lumbar surgery Hx of colonoscopy with polypectomy S/P prostatectomy S/P skin neoplasm resection Family History (Updated 11/18/20 @ 18:03 by Kerry Salomon PA-C) Mother Hypertension Glaucoma Diabetes Father Prostate cancer Diabetes Coronary heart disease [place] Sister Glaucoma Other No significant family history Social History (Updated 11/18/20 @ 18:04 by Kerry Salomon PA-C) Smoking Status: Former smoker packs per day: 2; Years Smoked: 25; Preferred Language: Kenyan Feels Safe at Home: Yes Review of Systems Review of Systems: All systems reviewed & are unremarkable except as noted in HPI & below Constitutional: no fever and no chills Eyes: no problem reported Ear, Nose, Mouth, Throat: no problem reported Respiratory: + dyspnea and + wheezing Cardiovascular: no chest pain, no palpitations and no edema Gastrointestinal: + abdominal pain (mild postsurgical); no nausea and no vomiting Genitourinary: + as per Subjective / HPI Musculoskeletal: no problem reported Integumentary: no problem reported Neurologic: no problem reported Psychiatric: + anxiety Endocrine: no problem reported Hematologic / Lymphatic: no problem reported Allergy / Immunological: no problem reported Physical Exam Physical Exam: obese male laying in bed on oxymask in NAD but appears somewhat anxious, able to answer questions in full sentences Constitutional: WD/WN, vitals as above Eyes: PERRL, conjunctivae normal, anicteric sclerae ENMT: external ear and nose normal, oropharynx normal Neck: normal visual inspection and + thick neck Respiratory: able to speak in complete sentences; no respiratory distress, no labored breathing, no cough and not tachypneic Auscultation: + wheezes; no crackles and no rhonchi Pt is on oxymask, able to speak in full sentences but appears somewhat anxious, on auscultation + loud diffuse wheezing, no rhonchi or crackles noted Cardiovascular: Rate/Rhythm: + tachycardic (mildly HR low 100) Chest (Breasts): Chest: normal inspection of chest Gastrointestinal (Abdomen): Inspection/Auscultation: abdomen normal to inspection, + abdomen distended (mildly) and normal bowel sounds Percussion/Palpation: + abdomen tender (mildly at surg. incision sites); no guarding and abdomen not rigid Musculoskeletal: Head/Neck/Chest: normocephalic, head atraumatic and neck supple Skin: no rashes, warm and dry Neurologic: PERRL, EOMI, accommodation nl, no face palsy, no dysarthria moves all extremities Psychiatric: Orientation: alert and oriented x 3 Affect: + anxious affect Genitourinary: no CVA tenderness Sahni catheter w/ clear yellow urine Lymphatic: no lymphedema Results & Data Results & Data ([facility]) Vital Signs (Past 12 Hours) Vital Signs Temp Pulse Pulse Resp BP Pulse Ox 11/18/20 14:30 107 H 23 110/74 89 L 11/18/20 14:06 93 H 20 98 11/18/20 14:00 96 H 26 H 117/76 98 11/18/20 13:49 40 H 97 11/18/20 13:32 36.9 C 106 H 24 121/91 92 11/18/20 13:31 105 H 27 H 121/91 90 11/18/20 13:17 93 Laboratory Results 11/18/20 11/18/20 11/18/20 Range/Units 17:32 15:54 14:20 WBC (4.8-10.8) K/uL RBC (4.7-6.1) M/uL Hgb (14.0-18.0) g/dL Hct (42-52) % MCV (80-100) fL MCH (25-34) pg MCHC (32-36) g/dL RDW Std Deviation (36.4-46.3) fL RDW Coeff of Aaron (11.5-14.5) % Plt Count (130-400) K/uL MPV (7.4-10.4) fL Immature Gran % (Auto) % Neut % (Auto) % Lymph % (Auto) % [place] % (Auto) % Eos % (Auto) % Baso % (Auto) % Neut # (Auto) (1.4-6.5) K/uL Lymph # (Auto) (1.2-3.4) K/uL [place] # (Auto) (0.11-0.59) K/uL Eos # (Auto) (0-0.5) K/uL Baso # (Auto) (0-0.2) K/uL Immature Gran # (Auto) (0.00-0.02) K/uL PT (9.0-12.0) Seconds INR (0.9-1.1) APTT (21.0-31.0) Seconds PTT Ratio ABG pH 7.36 (7.35-7.45) ABG pCO2 41 (35-46) mmHg ABG pO2 89 (80-95) mmHg ABG HCO3 23 (19-24) mmol/L ABG O2 Saturation 97.0 H (90-95) % ABG Base Excess -2.5 (-9-1.8) mEq/L Taurus Test Pos (Pos) Barometric Pressure 731.4 mm/Hg Oxygen Given 3.5 L Sodium (136-145) mmol/L Potassium (3.5-5.1) mmol/L Chloride (98-107) mmol/L Carbon Dioxide (21-32) mmol/L Anion Gap (3-11) BUN (7-18) mg/dl Creatinine (0.6-1.4) mg/dl Est Cr Clr Drug Dosing ml/min Est GFR ( Amer) Est GFR (Non-Af Amer) BUN/Creatinine Ratio (10-20) Glucose (70-99) mg/dl Lactate 1.2 (0.4-2.0) mmol/L Calcium (8.5-10.1) mg/dl Magnesium (1.8-2.4) mg/dl Total Bilirubin (0.2-1) mg/dl AST (15-37) U/L ALT (12-78) U/L Alkaline Phosphatase (45-117) U/L Troponin I (0-0.045) ng/ml Total Protein (6.4-8.2) gm/dl Albumin (3.4-5.0) gm/dl Globulin (2.5-4.0) gm/dl Albumin/Globulin Ratio (0.9-2) COVID-19 Eval Order SARS-CoV-2 (PCR) NEGATIVE (Negative) Influenza Type A (PCR) Negative (Neg) Influenza Type B (PCR) Negative (Neg) RSV (RT-PCR) Negative (Neg) 11/18/20 11/18/20 11/18/20 Range/Units 14:20 13:45 13:45 WBC (4.8-10.8) K/uL RBC (4.7-6.1) M/uL Hgb (14.0-18.0) g/dL Hct (42-52) % MCV (80-100) fL MCH (25-34) pg MCHC (32-36) g/dL RDW Std Deviation (36.4-46.3) fL RDW Coeff of Aaron (11.5-14.5) % Plt Count (130-400) K/uL MPV (7.4-10.4) fL Immature Gran % (Auto) % Neut % (Auto) % Lymph % (Auto) % [place] % (Auto) % Eos % (Auto) % Baso % (Auto) % Neut # (Auto) (1.4-6.5) K/uL Lymph # (Auto) (1.2-3.4) K/uL [place] # (Auto) (0.11-0.59) K/uL Eos # (Auto) (0-0.5) K/uL Baso # (Auto) (0-0.2) K/uL Immature Gran # (Auto) (0.00-0.02) K/uL PT 10.0 (9.0-12.0) Seconds INR 1.0 (0.9-1.1) APTT 23.8 (21.0-31.0) Seconds PTT Ratio 0.9 ABG pH (7.35-7.45) ABG pCO2 (35-46) mmHg ABG pO2 (80-95) mmHg ABG HCO3 (19-24) mmol/L ABG O2 Saturation (90-95) % ABG Base Excess (-9-1.8) mEq/L Taurus Test (Pos) Barometric Pressure mm/Hg Oxygen Given Sodium 139 (136-145) mmol/L Potassium 4.0 (3.5-5.1) mmol/L Chloride 109 H (98-107) mmol/L Carbon Dioxide 24 (21-32) mmol/L Anion Gap 6.0 (3-11) BUN 18 (7-18) mg/dl Creatinine 1.17 (0.6-1.4) mg/dl Est Cr Clr Drug Dosing 67.9 ml/min Est GFR ( Amer) 74.9 Est GFR (Non-Af Amer) 64.6 BUN/Creatinine Ratio 15.3 (10-20) Glucose 133 H (70-99) mg/dl Lactate (0.4-2.0) mmol/L Calcium 8.0 L (8.5-10.1) mg/dl Magnesium 2.1 (1.8-2.4) mg/dl Total Bilirubin 0.2 (0.2-1) mg/dl AST 24 (15-37) U/L ALT 23 (12-78) U/L Alkaline Phosphatase 76 (45-117) U/L Troponin I < 0.015 (0-0.045) ng/ml Total Protein 6.5 (6.4-8.2) gm/dl Albumin 2.5 L (3.4-5.0) gm/dl Globulin 4.0 (2.5-4.0) gm/dl Albumin/Globulin Ratio 0.6 L (0.9-2) COVID-19 Eval Order CovFluRsv at [facility] SARS-CoV-2 (PCR) (Negative) Influenza Type A (PCR) (Neg) Influenza Type B (PCR) (Neg) RSV (RT-PCR) (Neg) 11/18/20 Range/Units 13:45 WBC 15.75 H (4.8-10.8) K/uL RBC 4.35 L (4.7-6.1) M/uL Hgb 13.0 L (14.0-18.0) g/dL Hct 39.5 L (42-52) % MCV 90.8 (80-100) fL MCH 29.9 (25-34) pg MCHC 32.9 (32-36) g/dL RDW Std Deviation 49.0 H (36.4-46.3) fL RDW Coeff of Aaron 14.7 H (11.5-14.5) % Plt Count 312 (130-400) K/uL MPV 8.4 (7.4-10.4) fL Immature Gran % (Auto) 0.5 % Neut % (Auto) 61.0 % Lymph % (Auto) 28.0 % [place] % (Auto) 10.3 % Eos % (Auto) 0.1 % Baso % (Auto) 0.1 % Neut # (Auto) 9.61 H (1.4-6.5) K/uL Lymph # (Auto) 4.41 H (1.2-3.4) K/uL [place] # (Auto) 1.62 H (0.11-0.59) K/uL Eos # (Auto) 0.02 (0-0.5) K/uL Baso # (Auto) 0.01 (0-0.2) K/uL Immature Gran # (Auto) 0.08 H (0.00-0.02) K/uL PT (9.0-12.0) Seconds INR (0.9-1.1) APTT (21.0-31.0) Seconds PTT Ratio ABG pH (7.35-7.45) ABG pCO2 (35-46) mmHg ABG pO2 (80-95) mmHg ABG HCO3 (19-24) mmol/L ABG O2 Saturation (90-95) % ABG Base Excess (-9-1.8) mEq/L Taurus Test (Pos) Barometric Pressure mm/Hg Oxygen Given Sodium (136-145) mmol/L Potassium (3.5-5.1) mmol/L Chloride (98-107) mmol/L Carbon Dioxide (21-32) mmol/L Anion Gap (3-11) BUN (7-18) mg/dl Creatinine (0.6-1.4) mg/dl Est Cr Clr Drug Dosing ml/min Est GFR ( Amer) Est GFR (Non-Af Amer) BUN/Creatinine Ratio (10-20) Glucose (70-99) mg/dl Lactate (0.4-2.0) mmol/L Calcium (8.5-10.1) mg/dl Magnesium (1.8-2.4) mg/dl Total Bilirubin (0.2-1) mg/dl AST (15-37) U/L ALT (12-78) U/L Alkaline Phosphatase (45-117) U/L Troponin I (0-0.045) ng/ml Total Protein (6.4-8.2) gm/dl Albumin (3.4-5.0) gm/dl Globulin (2.5-4.0) gm/dl Albumin/Globulin Ratio (0.9-2) COVID-19 Eval Order SARS-CoV-2 (PCR) (Negative) Influenza Type A (PCR) (Neg) Influenza Type B (PCR) (Neg) RSV (RT-PCR) (Neg) Diagnostic Findings CT PE IMPRESSION: 1. A single linear filling defect seen within a left lower lobe segmental/subsegmental pulmonary artery. This is technically age indeterminate but favors a chronic pulmonary embolus. 2. Scattered irregular densities seen throughout the lungs. These demonstrate greater than 2 year stability and therefore favor areas of scarring. 3. Mild bronchial wall thickening and mild bronchiectasis is also likely chronic. 4. Slight increase in the tree-in-bud nodular opacities within the bilateral lower lobes. This favors an acute on chronic bronchiolitis. CXR IMPRESSION: No significant change compared to the prior study. No acute process.
[2020-11-18] MEDS ORDERED: oxyCODONE/ACETAMINOPHEN 5mg/325mg TAB PO PRN (19:19)
[2020-11-18] MEDS ORDERED: ACETAMINOPHEN 325 MG TAB PO PRN (19:19)
[2020-11-18] MEDS ORDERED: ONDANSETRON INJ 2 MG/ML 2 ML VIAL IV PRN (19:19)
[2020-11-18] MEDS ORDERED: ALBUTEROL HFA 8 GM INHALER INH PRN (19:39)
[2020-11-18] MEDS ORDERED: SODIUM CHLORIDE 0.9% 1000ML 1,000 ML IV SCH (19:45)
[2020-11-18] MEDS ORDERED: VANCOMYCIN CONSULT ACTIVE PRN (19:54)
[2020-11-18] MEDS: ALBUT/IPRATROP 3MG/0.5MG NEB 3 ML VIAL NEB SCH (19:54)
[2020-11-18] MEDS ORDERED: CEFEPIME CONSULT ACTIVE PRN (20:11)
--- NOTE | 2020-11-18 21:03 | Pharmacy Report ---
Pharmacy Abx Dose Short Note - Date of Service November 18, 2020 - Assessment & Plan Assessment 65 year old M admitted with shortness of breath ordered empiric vancomycin, cefepime, and metronidazole * h/o pulmonary sarcoidosis, interstitial lung disease, LETICIA on CPAP, prostate cancer now s/p robotic prostatectomy and b/l pelvic lymph node dissection * admitted to [facility] 11/16 - 11/17 for prostatectomy Plan Vancomycin * Loading dose: 2000 mg IV * Maintenance dose: 1250 mg (15 mg/kg) IV q12h * Patient meets criteria for vancomycin AUC dosing nomogram * Trough level will be ordered if therapy is extended beyond 48 hours/change in clinical status Cefepime * 2000 mg IV q8h Metronidazole - not a consult * 500 mg PO TID Pharmacy will continue to follow and will adjust dose/frequency as necessary. Thank you.
[2020-11-18] MEDS: CEFEPIME 2,000 MG in SYRINGE 0 ML IV SCH (21:07)
[2020-11-18] MEDS: POLYETHYLENE (MIRALAX) 17 GM PACK PO SCH (21:12)
[2020-11-18] MEDS ORDERED: VANCOMYCIN HCL 2,000 MG in SODIUM CHLORIDE 0.9% 500 ML IV ONE (21:30)
[2020-11-18] MEDS: DOCUSATE SODIUM 100 MG CAP PO SCH (21:39)
[2020-11-18] MEDS: metroNIDAZOLE 500 MG TAB PO SCH (21:39)
[2020-11-18] MEDS: methylPREDNISolone 40 MG in SYRINGE 0 ML IV SCH (21:39)
[2020-11-18] MEDS: AMITRIPTYLINE HCL 25 MG TAB PO SCH (21:39)
[2020-11-18] MEDS: LATANOPROST 0.005% OP SOLN 2.5 ML BTL OPB SCH (21:40)
[2020-11-18] MEDS: FLUTICASONE/VILANTEROL 200/25MCG 14 PUFFS/INHALER INH SCH (21:40)
[2020-11-19] MEDS: CEFEPIME 2,000 MG in SYRINGE 0 ML IV SCH ×2 (05:00→12:02)
[2020-11-19] MEDS: PANTOprazole 40 MG TAB PO SCH (05:01)
[2020-11-19] MEDS: ALBUT/IPRATROP 3MG/0.5MG NEB 3 ML VIAL NEB SCH ×4 (07:37→20:36)
[2020-11-19 07:50] LABS: Hematocrit (blood only) 41.2 % (42-52); Hemoglobin 13.4 g/dL (14.0-18.0); Mean Corpuscular Hemoglobin 29.6 pg (25-34); Mean Corpuscular Hgb Conc 32.5 g/dL (32-36); Mean Corpuscular Volume 91.2 fL (80-100); Platelet Count 332 K/uL (130-400); RDW Coefficient of Variation 14.6 % (11.5-14.5); RDW Standard Deviation 48.9 fL (36.4-46.3); Red Blood Count 4.52 M/uL (4.7-6.1); White Blood Count 14.02 K/uL (4.8-10.8)
[2020-11-19] MEDS: DOCUSATE SODIUM 100 MG CAP PO SCH ×2 (08:19→21:46)
[2020-11-19] MEDS: ROSUVASTATIN CALCIUM 20 MG TAB PO SCH (08:20)
[2020-11-19] MEDS: LOSARTAN POTASSIUM 50 MG TAB PO SCH (08:20)
[2020-11-19] MEDS: POLYETHYLENE (MIRALAX) 17 GM PACK PO SCH (08:20)
[2020-11-19] MEDS: methylPREDNISolone 40 MG in SYRINGE 0 ML IV SCH ×2 (08:20→21:46)
[2020-11-19] MEDS: CHOLECALCIFEROL 1,000 UNITS 25 MCG TAB PO SCH (08:20)
[2020-11-19] MEDS: METOPROLOL SUCC 50MG EXT REL TAB PO SCH (08:20)
[2020-11-19] MEDS: metroNIDAZOLE 500 MG TAB PO SCH ×2 (08:21→12:01)
[2020-11-19] MEDS: allopurinoL 300 MG TAB PO SCH (08:21)
[2020-11-19] MEDS: UMECLIDINIUM BROMIDE 62.5MCG/BLISTER 7 PUFFS/INHALER INH SCH (08:22)
[2020-11-19 08:37] LABS: Calcium 8.9 mg/dl (8.5-10.1); Creatinine Clr Calc Pharmacy 72.2 ml/min; Est GFR (African American) 85.3; Est GFR (Non-African American) 73.6; Potassium 5.3 mmol/L (3.5-5.1)
[2020-11-19] MEDS ORDERED: ASPIRIN 81 MG ECTAB PO SCH (09:00)
[2020-11-19] MEDS ORDERED: VANCOMYCIN HCL 1,250 MG in SODIUM CHLORIDE 0.9% 250 ML IV SCH (10:00)
--- NOTE | 2020-11-19 12:25 | Pulmonary Consultation ---
Date of Consultation November 19, 2020 Assessment & Plan (1) SOB (shortness of breath): CTA chest 11/18/2020 personally reviewed: Bilateral upper lobe scarring, right upper lobe 7 mm nodule. Bronchiectasis appreciated bilateral lower lobes. No mediastinal lymphadenopathy. There is also a linear filling defect within the left lower lobe segmental/subsegmental pulmonary artery which favors a chronic pulmonary embolus as per the radiologist ABG 11/18/2020: 7.36/41/89 on 3 and half liters oxygen --Acute hypoxic respiratory failure Etiologies not quite clear Could be exacerbation of underlying chronic obstructive lung disease with hx of smoking and sarcoidosis. CT chest also showed possible chronic pulmonary embolus COVID-19 PCR negative, influenza A/B negative Procalcitonin: 0.09 CT chest does not show any signs of pneumonia. --LETICIA Compliant with CPAP at home --History of pulmonary sarcoidosis Stage IV with fibrosis Patient states that he was treated with prednisone but he does not recall for how long His only on inhalers right now --Bronchiectasis Appreciated bilateral lower lobes Continue with guaifenesin, hypertonic saline nebulized and flutter valve Plan: Given the history of prostate cancer s/p resection 11/16/2020 and the finding of PE with shortness of breath I think it is reasonable to start the patient on anticoagulation for at least 3 months. I will order Doppler bilateral lower extremity to rule out DVT. No signs of consolidative process on the CT chest. Can DC antibiotics if they are given for pneumonia. Decrease Solu-Medrol to 40 mg once a day starting tomorrow. Would recommend making the patient walk on room air to see if he needs oxygen at home Follow-up NT BNP. Please note the above document was generated using voice recognition software. It may contain grammatical, syntax or spelling errors.Any formal questions or concerns about the content, text or information contained within the body of this dictation should be directly addressed to the provider for clarification. (2) Acute respiratory failure with hypoxia: (3) Pulmonary sarcoidosis: (4) Interstitial lung disease: (5) Bronchiectasis: (6) COPD with acute exacerbation: History of Present Illness Attending Physician: Uma Parks DO History of Present Illness 65-year-old male with past medical history of pulmonary sarcoidosis stage IV diagnosed long time ago following up with [facility] pulmonology, LETICIA on CPAP, prostate cancer s/p robotic prostatectomy done 11/16/2020 present to the hospital with complaints of shortness of breath while he was sleeping. He suddenly woke up short of breath. Denied any chest pain, no diaphoresis, no dizziness at that time. He always wheezes that is his baseline as per the patient. Denies any dysuria, no diarrhea. No hematuria, no hematochezia. No fever or chills. Social history: Quit approximately 10 years ago, used to be 2 pack a day smoker, greater than [id number] smoking history, denies any history of drug use. Allergies Allergy/AdvReac Type Severity Reaction Status Date / Time clavulanic acid Allergy Unknown BETA-LACTAMASE Verified 11/18/20 14:35 INHIBITOR ALLERGY doxycycline Allergy Unknown ` Verified 11/18/20 14:35 fluconazole Allergy Unknown Verified 11/18/20 14:35 Penicillins Allergy Unknown Verified 11/18/20 14:35 pneumococcal vaccine Allergy Unknown Verified 11/18/20 14:35 Home Medications Medication Instructions Recorded Confirmed Type albuterol sulfate 2 inh INHALATION QID PRN 06/21/19 11/18/20 History allopurinol 300 mg PO DAILY 06/21/19 11/18/20 History amitriptyline 25 mg PO HS 06/21/19 11/18/20 History aspirin 81 mg PO QAM 06/21/19 11/18/20 History azelastine 2 spray INTRANASAL BID PRN 06/21/19 11/18/20 History latanoprost 1 drp OPB PM 06/21/19 11/18/20 History metoprolol succinate 50 mg PO DAILY 06/21/19 11/18/20 History mometasone-formoterol 2 inh INHALATION BID 06/21/19 11/18/20 History omeprazole 20 mg PO QAM 06/21/19 11/18/20 History rosuvastatin 20 mg PO DAILY 06/21/19 11/18/20 History tiotropium bromide [Spiriva with 1 cap INHALATION DAILY 06/21/19 11/18/20 History HandiHaler] cholecalciferol (vitamin D3) 25 mcg PO DAILY 11/18/20 11/18/20 History ciprofloxacin HCl 500 mg PO BID 11/18/20 11/18/20 History docusate sodium 100 mg PO BID 11/18/20 11/18/20 History losartan 50 mg PO DAILY 11/18/20 11/18/20 History oxycodone-acetaminophen 1 tab PO Q6 PRN 11/18/20 11/18/20 History Patient History Medical History Hyperlipidemia Interstitial lung disease LETICIA on CPAP Prostate cancer Pulmonary sarcoidosis Sarcoid Warthin's tumor Surgical History (Updated 11/18/20 @ 18:02 by Kerry Salomon PA-C) H/O vasectomy History of lumbar surgery Hx of colonoscopy with polypectomy S/P prostatectomy S/P skin neoplasm resection Family History (Updated 11/18/20 @ 18:03 by Kerry Salomon PA-C) Mother Hypertension Glaucoma Diabetes Father Prostate cancer Diabetes Coronary heart disease [place] Sister Glaucoma Other No significant family history Social History Smoking Status: Former smoker packs per day: 2; Years Smoked: 25; Hx Alcohol Use: No Hx Substance Use: No Preferred Language: Nepali Communication Ability: Effective It Systems Analyst Consultant Required: No Beliefs That Will Affect Care: None Current Living Situation: Spouse Other Information That Helps Us Care for You: No Feels Safe at Home: Yes Safety Concerns: Feels Safe At This Time Assistive Devices: CPAP Review of Systems Review of Systems: All systems reviewed & are unremarkable except as noted in HPI & below Physical Exam Physical Exam: Constitutional: No acute distress HEENT: EOMI, PERRLA Respiratory system: Decreased air entry bilaterally, no rhonchi, positive expiratory wheeze, mild crackles bilateral lower lobes CVS: S1-S2 positive, no murmurs or gallops Abdomen: Soft, nontender, nondistended, positive bowel sounds x4, obese Extremities: +2 pulses bilaterally radialis/ dorsalis pedis, no cyanosis, +1 pitting edema bilateral lower extremity Neuro: Awake alert oriented x3 Psych: Normal mood and affect G/U: Positive Sahni Skin: no rashes, warm and dry Lymphatic: no cervical or axillary lymphadenopathy Results & Data Results & Data ([facility]) Vital Signs (Past 12 Hours) Vital Signs Temp Pulse Pulse Pulse Resp BP Pulse Ox 11/19/20 11:21 36.6 C 105 H 21 143/74 H 93 11/19/20 10:53 104 H 18 95 11/19/20 07:40 90 16 93 11/19/20 07:26 36.5 C 90 18 135/84 92 11/19/20 03:14 88 20 94 11/19/20 03:00 36.7 C 98 H 20 158/81 H 97 11/19/20 06:34 11/19/20 06:34 PG Care Time/CCT Total # of Minutes Spent Total Time Spent with Patient: Total time spent is greater than 50% in coordination of care (as documented) at patient's floor/unit and/or counseling patient: Coding Level of Care Code 09818 Initial Inpt Care Lvl 3 Diagnoses SOB (shortness of breath) R06.02 Acute respiratory failure with hypoxia J96.01 Pulmonary sarcoidosis D86.0 Interstitial lung disease J84.9 Bronchiectasis J47.9 COPD with acute exacerbation J44.1
--- NOTE | 2020-11-19 13:28 | Ultrasound Report ---
BILATERAL LOWER EXTREMITY VENOUS DOPPLER HISTORY: Acute pain and swelling of the lower extremities r/o DVT COMPARISON STUDY: 06/05/2010. FINDINGS: There is normal compressibility, flow, and augmentation within the bilateral lower extremit y deep venous systems. IMPRESSION: No DVT within the right or left lower extremity. ACT 112: Negative or not required by law. Electronically signed by: Hitesh Dang M.D. 11/19/2020 1:26 PM
--- NOTE | 2020-11-19 13:59 | Hospitalist Progress Note ---
Date of Service November 19, 2020 Assessment & Plan (1) Acute respiratory failure with hypoxia: No evidence of pneumonia, possible COPD exacerbation in setting of pulmonary sarcoid and interstitial lung disease. Appreciate pulmonary recommendations. De-escalate steroids from methylprednisolone to prednisone daily tomorrow. Continue oxygen support as needed. Bronchodilator therapy as needed. Continue CPAP per home settings. No evidence of pneumonia on CT, procalcitonin was negative and antibiotics were discontinued. (2) Pulmonary embolus: Starting Lovenox in setting of malignancy. Pharmacy to assist with timing. Continue to watch for bleeding in postoperative setting. (3) Pulmonary sarcoidosis: Plan as above. (4) Interstitial lung disease: Plan as above. (5) LETICIA on CPAP: Cont. CPAP at (6) Prostate cancer: Status post robotic laparoscopic prostatectomy with pelvic lymph node dissection by Dr. Malin at [facility] on 11/16/2020. Observe activity restrictions including no strenuous activity and weight lift restriction of less than 10 pounds. Continue Cipro for postoperative prophylaxis of infection. (7) S/P prostatectomy: Continue Rivas without removal as he will be following up with urology for postoperative assessment shortly after this discharge. (8) DVT prophylaxis: Lovenox DNR/DNI Disposition-pending improvement, plan for home when medically stable. Uma Parks DO [facility] Hospitalist Admission and Anticipated Discharge Date Admission Date: November 18, 2020 Subjective 65 yo M with prostate cancer s/p recent prostatectomy with LN dissection at [facility] on 11/16/20 presented with acute shortness of breath with hypoxia. He has underlying pulmonary sarcoidosis and ILD. He reports wheezing all the time and "just deals with it." He doesn't see a special events driver regularly He is doing better today after some steroid therapy overnight He feels his prostate surgery triggered something He has some reported rivas leaking but prefers to allow only the Urologist to investigate He denies pain, cough, fevers or chills No evidence of pneumonia on CT scan Started on Lovenox for chronic embolus in lung in setting of malignancy per pulm recommendations. Review of Systems Review of Systems: All systems reviewed & are unremarkable except as noted in Subjective Physical Exam Physical Exam: CONSTITUTIONAL: WNWD, vitals as above, generally well- appearing EYES: normal conjunctivae, no scleral icterus ENT: external ear and nose normal, MMM RESPIRATORY: wheezing throughout, no crackles or rakes, normal respiratory effort CARDIOVASCULAR: regular rate and rhythm, S1 and 2 heard without murmurs, gallops or rubs, no JVD, no peripheral edema GASTROINTESTINAL:, soft, nontender, nondistended, no guarding MUSCULOSKELETAL: strength 5/5 throughout, head is normocephalic and atraumatic SKIN: warm and dry NEUROLOGIC: CN 2-12 grossly intact, no sensory deficit, normal cognition, normal speech PSYCHIATRIC: alert cooperative and oriented to person, place and time. Results & Data Results & Data ([facility]) Vital Signs (Past 12 Hours) Vital Signs Temp Pulse Pulse Pulse Resp BP Pulse Ox 11/19/20 11:21 36.6 C 105 H 21 143/74 H 93 11/19/20 10:53 104 H 18 95 11/19/20 07:40 90 16 93 11/19/20 07:26 36.5 C 90 18 135/84 92 11/19/20 03:14 88 20 94 11/19/20 03:00 36.7 C 98 H 20 158/81 H 97 Laboratory Results Short CBC 11/18/20 11/19/20 Range/Units 13:45 06:34 WBC 15.75 H 14.02 H (4.8-10.8) K/uL Hgb 13.0 L 13.4 L (14.0-18.0) g/dL Hct 39.5 L 41.2 L (42-52) % Plt Count 312 332 (130-400) K/uL BMP 11/18/20 11/19/20 13:45 06:34 Sodium 139 136 Potassium 4.0 5.3 H D Chloride 109 H 109 H Carbon Dioxide 24 24 BUN 18 16 Creatinine 1.17 1.05 Glucose 133 H 139 H Calcium 8.0 L 8.9 Cardiac Enzymes 11/18/20 Range/Units 13:45 Troponin I < 0.015 (0-0.045) ng/ml Liver Function 11/18/20 Range/Units 13:45 Total Bilirubin 0.2 (0.2-1) mg/dl AST 24 (15-37) U/L ALT 23 (12-78) U/L Alkaline Phosphatase 76 (45-117) U/L Albumin 2.5 L (3.4-5.0) gm/dl Medications Administered Current Inpatient Medications Acetaminophen (Acetaminophen 325 Mg Tab) 650 mg PO Q4H PRN PRN Reason: Pain or Fever Stop: 12/18/20 19:18 Albuterol (Albuterol Hfa 8 Gm Inhaler) 2 puffs INH QID PRN PRN Reason: Shortness Of Breath Or Wheezing Stop: 12/18/20 19:38 Albuterol (Albut/Ipratrop 3mg/0.5mg Neb 3 Ml Vial) 3 ml NEB Q4RWA [facility] Stop: 12/18/20 19:59 Last Admin: 11/19/20 10:50 Dose: 3 ml Documented by: Allopurinol (Allopurinol 300 Mg Tab) 300 mg PO DAILY [facility] Stop: 12/19/20 08:59 Last Admin: 11/19/20 08:21 Dose: 300 mg Documented by: Amitriptyline HCl (Amitriptyline Hcl 25 Mg Tab) 25 mg PO HS [facility] Stop: 12/18/20 20:59 Last Admin: 11/18/20 21:39 Dose: 25 mg Documented by: Aspirin (Aspirin 81 Mg Ectab) 81 mg PO QAM [facility] Stop: 12/19/20 08:59 Last Admin: 11/19/20 08:19 Dose: Not Given Documented by: Docusate Sodium (Docusate Sodium 100 Mg Cap) 100 mg PO BID [facility] Stop: 12/18/20 20:59 Last Admin: 11/19/20 08:19 Dose: 100 mg Documented by: Fluticasone/Vilanterol (Fluticasone/Vilanterol 200/25mcg 14 Puffs/Inhaler) 1 puffs INH QPM [facility]; Protocol Stop: 12/18/20 20:59 Last Admin: 11/18/20 21:40 Dose: 1 puffs Documented by: Methylprednisolone 40 mg/ (Syringe) 0.64 mls @ 1.5 mls/min IV BID [facility] Stop: 11/19/20 21:30 Last Admin: 11/19/20 08:20 Dose: 1.5 mls/min Documented by: Vancomycin HCl 1,250 mg/ (Sodium Chloride) 275 mls @ 200 mls/hr IV Q12H [facility] Stop: 11/20/20 21:59 Last Infusion: 11/19/20 12:01 Dose: Infused Documented by: Latanoprost (Latanoprost 0.005% Op Soln 2.5 Ml Btl) 1 drops OPB PM [facility] Stop: 12/18/20 20:59 Last Admin: 11/18/20 21:40 Dose: 1 drops Documented by: Losartan Potassium (Losartan Potassium 50 Mg Tab) 50 mg PO DAILY [facility] Stop: 12/19/20 08:59 Last Admin: 11/19/20 08:20 Dose: 50 mg Documented by: Metoprolol Succinate (Metoprolol Succ 50mg Ext Rel Tab) 50 mg PO DAILY [facility] Stop: 12/19/20 08:59 Last Admin: 11/19/20 08:20 Dose: 50 mg Documented by: Metronidazole (Metronidazole 500 Mg Tab) 500 mg PO TID [facility] Stop: 11/20/20 20:59 Last Admin: 11/19/20 12:01 Dose: 500 mg Documented by: Miscellaneous (*Azelastine 137 Mcg (0.1 %) *Order Awaiting Action) 1 ea N/A QS [facility] Stop: 12/19/20 07:59 Last Admin: 11/19/20 07:33 Dose: Not Given Documented by: Miscellaneous Information (Vancomycin Consult Active) 1 ea N/A UD PRN PRN Reason: Consult Stop: 12/18/20 19:53 Ondansetron HCl (Ondansetron Inj 2 Mg/Ml 2 Ml Vial) 4 mg IV Q6H PRN PRN Reason: Nausea Stop: 12/18/20 19:18 Oxycodone/Acetaminophen (Oxycodone/Acetaminophen 5mg/325mg Tab) 1 tab PO Q6H RI N PRN Reason: Pain Stop: 12/02/20 19:18 Pantoprazole Sodium ([facility]ant[facility]ole 40 Mg Tab) [facility] Stop: 12/19/20 06:29 Last Admin: 11/19/20 05:01 Dose: 40 mg Documented by: Polyethylene Glycol (Polyethylene (Miralax) 17 Gm Pack) 17 gm PO DAILY [facility] Stop: 12/18/20 19:18 Last Admin: 11/19/20 08:20 Dose: 17 gm Documented by: Prednisone (Prednisone 20 Mg Tab) 40 mg PO DAILY [facility] Stop: 12/20/20 08:59 Rosuvastatin Calcium (Rosuvastatin Calcium 20 Mg Tab) 20 mg PO DAILY [facility] Stop: 12/19/20 08:59 Last Admin: 11/19/20 08:20 Dose: 20 mg Documented by: Umeclidinium [place] (Umeclidinium [place] 62.5mcg/Blister 7 Puffs/Inhaler) 1 puffs INH DAILY [facility]; Protocol Stop: 12/19/20 08:59 Last Admin: 11/19/20 08:22 Dose: 1 puffs Documented by: Vitamin D (Cholecalciferol 1,000 Units 25 Mcg Tab) 1,000 units PO DAILY [facility] Stop: 12/19/20 08:59 Last Admin: 11/19/20 08:20 Dose: 1,000 units Documented by:
[2020-11-19] MEDS: ENOXAPARIN 100 MG/1ML SYR SQ SCH ×2 (14:57→23:11)
--- NOTE | 2020-11-19 15:09 | Electrocardiogram Report ---
Test Reason : Blood Pressure : / mmHG Vent. Rate : 103 BPM Atrial Rate : 103 BPM P-R Int : 150 ms QRS Dur : 132 ms QT Int : 402 ms P-R-T Axes : 019 042 027 degrees QTc Int : 526 ms Sinus tachycardia Right bundle branch block Abnormal ECG When compared with ECG of 21-JUN-2019 08:54, QRS duration has increased QT has lengthened Confirmed by Chandrakant De Leon ([id number]) on 11/19/2020 3:08:48 PM Referred By: REFERRED SELF Confirmed By:Chandrakant De Leon
--- NOTE | 2020-11-19 15:14 | Electrocardiogram Report ---
Test Reason : Blood Pressure : / mmHG Vent. Rate : 098 BPM Atrial Rate : 098 BPM P-R Int : 158 ms QRS Dur : 130 ms QT Int : 364 ms P-R-T Axes : 035 050 011 degrees QTc Int : 464 ms Normal sinus rhythm Right bundle branch block Abnormal ECG When compared with ECG of 18-NOV-2020 13:38, (unconfirmed) QT has shortened Confirmed by Chandrakant De Leon ([id number]) on 11/19/2020 3:13:33 PM Referred By: REFERRED SELF Confirmed By:Chandrakant De Leon
[2020-11-19 15:31] LABS: Appearance Urine Clear (Clear); Bacteria Urine Automated Negative (Negative); Bilirubin Urine Negative (Negative); Blood Urine 2+ (Negative); Cast Urine Automated 0 /lpf (0-5); Color Urine Yellow; Epithelial Cell Urine Auto 0-5 /lpf (0-5); Glucose Urine UA Negative (Negative); Ketones Urine Negative (Negative); Leukocyte Esterase Urine Trace (Negative); Nitrite Urine Negative (Negative); Protein Urine Negative (Negative); Specific Gravity Urine 1.008 (1.000-1.030); Urobilinogen Urine Negative (Negative); pH Urine 6.5 (4.5-7.5)
[2020-11-19] MEDS: LATANOPROST 0.005% OP SOLN 2.5 ML BTL OPB SCH (21:44)
[2020-11-19] MEDS: AMITRIPTYLINE HCL 25 MG TAB PO SCH (21:45)
[2020-11-19] MEDS: FLUTICASONE/VILANTEROL 200/25MCG 14 PUFFS/INHALER INH SCH (21:46)
[2020-11-19] MEDS: CIPROFLOXACIN 500 MG TAB PO SCH (21:46)
[2020-11-20] MEDS: PANTOprazole 40 MG TAB PO SCH (05:36)
[2020-11-20 06:15] LABS: Hematocrit (blood only) 41.8 % (42-52); Mean Corpuscular Hemoglobin 30.2 pg (25-34); Mean Corpuscular Hgb Conc 33.5 g/dL (32-36); Mean Corpuscular Volume 90.3 fL (80-100); Mean Platelet Volume 8.7 fL (7.4-10.4); Platelet Count 378 K/uL (130-400); RDW Coefficient of Variation 14.6 % (11.5-14.5); RDW Standard Deviation 48.6 fL (36.4-46.3); Red Blood Count 4.63 M/uL (4.7-6.1)
[2020-11-20 06:50] LABS: BUN Creatinine Ratio 22.5 (10-20); Calcium 9.2 mg/dl (8.5-10.1); Creatinine Clr Calc Pharmacy 71.5 ml/min; Est GFR (African American) 84.3; Est GFR (Non-African American) 72.8; Magnesium 2.4 mg/dl (1.8-2.4); Potassium 4.7 mmol/L (3.5-5.1)
[2020-11-20] MEDS: ALBUT/IPRATROP 3MG/0.5MG NEB 3 ML VIAL NEB SCH ×2 (07:32→10:52)
[2020-11-20] MEDS: METOPROLOL SUCC 50MG EXT REL TAB PO SCH (08:17)
[2020-11-20] MEDS: ROSUVASTATIN CALCIUM 20 MG TAB PO SCH (08:18)
[2020-11-20] MEDS: UMECLIDINIUM BROMIDE 62.5MCG/BLISTER 7 PUFFS/INHALER INH SCH (08:18)
[2020-11-20] MEDS: allopurinoL 300 MG TAB PO SCH (08:18)
[2020-11-20] MEDS: LOSARTAN POTASSIUM 50 MG TAB PO SCH (08:18)
[2020-11-20] MEDS: CHOLECALCIFEROL 1,000 UNITS 25 MCG TAB PO SCH (08:18)
[2020-11-20] MEDS: CIPROFLOXACIN 500 MG TAB PO SCH (08:19)
[2020-11-20] MEDS: ENOXAPARIN 100 MG/1ML SYR SQ SCH (08:19)
[2020-11-20] MEDS: DOCUSATE SODIUM 100 MG CAP PO SCH (08:19)
[2020-11-20] MEDS: POLYETHYLENE (MIRALAX) 17 GM PACK PO SCH (08:20)
[2020-11-20] MEDS ORDERED: predniSONE 20 MG TAB PO SCH (09:00)
[2020-11-20] MEDS ORDERED: VANCOMYCIN TROUGH ONE (09:30)
[2020-11-20] MEDS ORDERED: ALBUT/IPRATROP 3MG/0.5MG NEB 3 ML VIAL NEB PRN (11:52)
--- NOTE | 2020-11-20 13:48 | Pulmonology Progress Note ---
Date of Service November 20, 2020 Assessment & Plan (1) SOB (shortness of breath): CTA chest 11/18/2020 personally reviewed: Bilateral upper lobe scarring, right upper lobe 7 mm nodule. Bronchiectasis appreciated bilateral lower lobes. No mediastinal lymphadenopathy. There is also a linear filling defect within the left lower lobe segmental/subsegmental pulmonary artery which favors a chronic pulmonary embolus as per the radiologist ABG 11/18/2020: 7.36/41/89 on 3 and half liters oxygen --Acute hypoxic respiratory failure Etiologies not quite clear Could be exacerbation of underlying chronic obstructive lung disease with hx of smoking and sarcoidosis. CT chest also showed possible chronic pulmonary embolus COVID-19 PCR negative, influenza A/B negative Procalcitonin: 0.09 CT chest does not show any signs of pneumonia. --LETICIA Compliant with CPAP at home --History of pulmonary sarcoidosis Stage IV with fibrosis Patient states that he was treated with prednisone but he does not recall for how long He is only on inhalers right now --Bronchiectasis Appreciated bilateral lower lobes Continue with guaifenesin, hypertonic saline nebulized and flutter valve Plan: Recommend prednisone taper over 10 days. Continue ac for possible chronic PE in a patient that is hypercoagulable. Okay for discharge from a pulm perspective. Please note the above document was generated using voice recognition software. It may contain grammatical, syntax or spelling errors.Any formal questions or concerns about the content, text or information contained within the body of this dictation should be directly addressed to the provider for clarification. (2) Acute respiratory failure with hypoxia: (3) Pulmonary sarcoidosis: (4) Interstitial lung disease: (5) Bronchiectasis: (6) COPD with acute exacerbation: Admission and Anticipated Discharge Date Admission Date: November 18, 2020 Subjective Shortness of breath significantly improved. No chest pain. Eager to go home. Ambulating without oxygen and doing well. Notes that he wheezes chronically. Review of Systems Review of Systems: All systems reviewed & are unremarkable except as noted in HPI & below Physical Exam Physical Exam: Constitutional: No acute distress HEENT: EOMI, PERRLA Respiratory system: Decreased air entry bilaterally, no rhonchi, positive expiratory wheeze, mild crackles bilateral lower lobes CVS: S1-S2 positive, no murmurs or gallops Abdomen: Soft, nontender, nondistended, positive bowel sounds x4, obese Extremities: +2 pulses bilaterally radialis/ dorsalis pedis, no cyanosis, +1 pitting edema bilateral lower extremity Neuro: Awake alert oriented x3 Psych: Normal mood and affect G/U: Positive Shani Skin: no rashes, warm and dry Lymphatic: no cervical or axillary lymphadenopathy Results & Data Results & Data ([facility]) Vital Signs (Past 12 Hours) Vital Signs Temp Pulse Resp BP Pulse Ox 11/20/20 10:54 80 18 98 11/20/20 07:55 97.7 F 99 H 18 147/89 H 92 11/20/20 07:36 82 16 95 VS, imaging and labs reviewed PG Care Time/CCT Total # of Minutes Spent Total Time Spent with Patient: Total time spent is greater than 50% in coordination of care (as documented) at patient's floor/unit and/or counseling patient: Coding Level of Care Code 97387 Subseq Hosp Care Lvl 2 Diagnoses SOB (shortness of breath) R06.02 Acute respiratory failure with hypoxia J96.01 Pulmonary sarcoidosis D86.0 Interstitial lung disease J84.9 Bronchiectasis J47.9 COPD with acute exacerbation J44.1
--- NOTE | 2020-11-20 15:40 | Discharge Summary ---
Date of Service November 20, 2020 Admission HPI Per Admitting Provider Pt is a 65 M with hx of pulmonary sarcoidosis, interstitial lung disease, LETICIA on CPAP, prostate cancer now s/p robotic prostatectomy and b/l pelvic lymph node dissection w/ Dr. Malin, who now presents with hyperventilation and shortness of breath. Pt was at [facility] from 11/16 to 11/17 for his prostatectomy, was discharged yesterday with Sahni catheter. Pt reports that today at home as he was sitting in his living room and felt "worked up" about his surgery and Sahni catheter. He reports that he just could not breath and therefore presented into the hospital. He denies any fever, chills, chest pain. He has some mild post- surgical abd. pain. He reports he didn't have a BM since surgery. He was discharged from [place] on Cipro, pt does not recall the name but says he got medication after surgery and that his is managing his medications. Pt has hx of pulm. sarcoidosis and interst. lung disease, LETICIA on CPAP, reports he follows w/[facility] ([place]), reports that recently did not have any breathing issues but he also says that he is always wheezy. Currently in the ED, pt hypoxic an requiring oxymask. CT PE obtained negative for acute PE but shows chronic pulm. embolus, scarring, chronic bronchiectasis and acute on chronic bronchiolitis. Blood cultx were obtained and pt was given ceftriaxone, methylprednisolone and albuterol in the ED. Admission Exam Per Admitting Provider Physical Exam: obese male laying in bed on oxymask in NAD but appears somewhat anxious, able to answer questions in full sentences Constitutional: WD/WN, vitals as above Eyes: PERRL, conjunctivae normal, anicteric sclerae ENMT: external ear and nose normal, oropharynx normal Neck: normal visual inspection and + thick neck Respiratory: able to speak in complete sentences; no respiratory distress, no labored breathing, no cough and not tachypneic Auscultation: + wheezes; no crackles and no rhonchi Pt is on oxymask, able to speak in full sentences but appears somewhat anxious, on auscultation + loud diffuse wheezing, no rhonchi or crackles noted Cardiovascular: Rate/Rhythm: + tachycardic (mildly HR low 100) Chest (Breasts): Chest: normal inspection of chest Gastrointestinal (Abdomen): Inspection/Auscultation: abdomen normal to inspection, + abdomen distended (mildly) and normal bowel sounds Percussio n/Palpation: + abdomen tender (mildly at surg. incision sites); no guarding and abdomen not rigid Musculoskeletal: Head/Neck/Chest: normocephalic, head atraumatic and neck supple Skin: no rashes, warm and dry Neurologic: PERRL, EOMI, accommodation nl, no face palsy, no dysarthria moves all extremities Psychiatric: Orientation: alert and oriented x 3 Affect: + anxious affect Genitourinary: no CVA tenderness Sahni catheter w/ clear yellow urine Lymphatic: no lymphedema Principal Diagnosis Acute respiratory therapy with hypoxia-resolved Chronic pulmonary thrombus prostate cancer s/p prostatectomy with lymph node dissection Discharge Exam CONSTITUTIONAL: WNWD, vitals as above, generally well-appearing EYES: normal conjunctivae, no scleral icterus ENT: external ear and nose normal, MMM RESPIRATORY: some wheezing throughout but improved, no crackles or rakes, normal respiratory effort CARDIOVASCULAR: regular rate and rhythm, S1 and 2 heard without murmurs, gallops or rubs, no JVD, no peripheral edema GASTROINTESTINAL:, soft, nontender, nondistended, no guarding MUSCULOSKELETAL: strength 5/5 throughout, head is normocephalic and atraumatic SKIN: warm and dry NEUROLOGIC: CN 2-12 grossly intact, no sensory deficit, normal cognition, normal speech PSYCHIATRIC: alert cooperative and oriented to person, place and time. Discharge Data Allergies Allergy/AdvReac Type Severity Reaction Status Date / Time clavulanic acid Allergy Unknown BETA-LACTAMASE Verified 11/18/20 14:35 INHIBITOR ALLERGY doxycycline Allergy Unknown ` Verified 11/18/20 14:35 fluconazole Allergy Unknown Verified 11/18/20 14:35 Penicillins Allergy Unknown Verified 11/18/20 14:35 pneumococcal vaccine Allergy Unknown Verified 11/18/20 14:35 Consultations 11/18/20 17:10 ED Decision to Admit Stat 11/19/20 08:00 Consult Pulmonology Routine Ordered Studies 11/18/20 14:23 CT angio chest PE protocol Stat 11/19/20 12:14 US venous doppler [facility] Urgent Hospital Course (1) Acute respiratory failure with hypoxia: No evidence of pneumonia, possible COPD exacerbation in setting of pulmonary sarcoid and interstitial lung disease. Appreciate pulmonary recommendations. Steroids were continued for a short course with ongoing wheezing, which patient reports to be his baseline. No oxygen needs at time of discharge. No evidence of pneumonia on CT, procalcitonin was negative and antibiotics were discontinued. Overall he felt much better at time of discharge and oxygen needs were resolved. Patient believed there also may have been a component of post-operative anxiety that contributed to his initial shortness of breath. (2) Pulmonary embolus: Chronic pulmonary embolus noted on imaging. In the setting of malignancy, 3 months anticoagulant therapy was recommended. He was initially placed on full dose Lovenox which was transitioned to eliquis at time of discharge. (3) Pulmonary sarcoidosis: Followup with outpatient tufting supervisor. (4) Interstitial lung disease: Followup with outpatient tufting supervisor. (5) LETICIA on CPAP: Cont home therapy with CPAP at night. (6) Prostate cancer: Status post robotic laparoscopic prostatectomy with pelvic lymph node dissection by Dr. Malin at [facility] on 11/16/2020. Recommended to continue to observe activity restrictions including no strenuous activity and weight lift restriction of less than 10 pounds. Continue Cipro for postoperative prophylaxis of infection. (7) S/P prostatectomy: Continue Sahni without removal as he will be following up with urology for postoperative assessment shortly after this discharge. Total Time Total Time Spent Total Time Spent (In Minutes): 60 Total Time Includes: Examination of the Patient, Discharge Planning, Medication Reconciliation and Communication With Other Providers Discharge Plan Discharge Items Patient Disposition: Home - Self-Care Reason For Visit: SOB, O2 DESATURATION Discharge Diagnosis: Acute respiratory therapy with hypoxia-resolved Chronic pulmonary thrombus prostate cancer s/p prostatectomy with lymph node dissection Condition on Discharge: Good Activity: Resume your previous activity Non-emergency contact: Primary Care Provider Call non-emergency contact if: you have any medication questions, your symptoms worsen, your pain is not controlled, your pain is worsening, your pain is unusual for you, your pain is concerning for you and you have a fever Follow-up/Referrals: Papi Yancey DO [Primary Care Provider] - 11/24/20 11:00 am (Date & Time 11/24/2020 11:00 AM Provider Papi Yancey DO [facility] ) Diet: Heart Healthy Diet Texture: Easy to Chew Addtl Attending Provider Instructions: Please take all medications as instructed on discharge list below. To clarify, you will not be given the Lovenox injections as previously instructed. You are being given APIXABAN which is a novel anticoagulant to treat your blood clot. You will need at least 3 months of apixaban treatment. You are being given a short course of steroids to help with your breathing. This will be a tapered dose as follows: Start 40mg (4 tabs) daily x 2 days, then 30mg (3 tabs) daily x 2 days, then 20mg (2 tabs) daily x 2 days, then 10mg (1 tab) daily x 2 days, then 5mg (0.5 tab) daily x 2 days, then stop. Please continue to follow all post-operative instructions per Dr. Malin. It is recommended that you follow-up with your primary care provider at the date/time above. This visit will be important to ensure you are still doing well after discharge from the hospital generally, and that your breathing is still at baseline. As discussed please follow-up with [facility] every 6-12 months or as needed. It was a pleasure taking care of you! Please call if you have any questions or problems. You can reach a [facility] hospitalist on duty at [facility] 24 hours a day by calling [phone]. Take care of yourself. Uma Parks, DO [facility] Pending Studies at Discharge: No Stand-Alone Forms: My [facility] Medications and DC Order Prescriptions: New apixaban 5 mg tablet 10 mg PO BID Qty: 28 RF: 0 apixaban 5 mg tablet 5 mg PO BID Qty: 60 RF: 1 prednisone 10 mg tablet 10 mg PO UD Qty: 25 RF: 0 Continued latanoprost 0.005 % Drops 1 drp OPB PM RF: 0 metoprolol succinate 50 mg Tablet Extended Release 24 Hr 50 mg PO DAILY RF: 0 amitriptyline 50 mg Tablet 25 mg PO HS RF: 0 allopurinol 300 mg Tablet 300 mg PO DAILY RF: 0 azelastine 137 mcg (0.1 %) Aerosol,[place] 2 spray INTRANASAL BID PRN (Reason: Congestion) RF: 0 rosuvastatin 20 mg Tablet 20 mg PO DAILY RF: 0 Spiriva with HandiHaler 18 mcg Capsule, W/Inhalation Device 1 cap INHALATION DAILY RF: 0 omeprazole 20 mg Tablet,Delayed Release (Dr/Ec) 20 mg PO QAM RF: 0 mometasone-formoterol 200-5 mcg/actuation Hfa Aerosol Inhaler 2 inh inhalation BID RF: 0 albuterol sulfate 90 mcg/actuation Aerosol Powdr Breath Activated 2 inh INHALATION QID PRN (Reason: Shortness Of Breath Or Wheezing) RF: 0 losartan 50 mg tablet 50 mg PO DAILY RF: 0 ciprofloxacin HCl 500 mg tablet 500 mg PO BID RF: 0 oxycodone-acetaminophen 5-325 mg tablet 1 tab PO Q6 PRN (Reason: Pain) RF: 0 docusate sodium 100 mg Capsule 100 mg PO BID RF: 0 cholecalciferol (vitamin D3) 25 mcg (1,000 unit) Tablet 25 mcg PO DAILY RF: 0 Discontinued aspirin 81 mg Tablet,Delayed Release (Dr/Ec) 81 mg PO QAM RF: 0 Discharge Orders: Discharge Order (Routine); Ordered 11/20/20 Ordered By: Uma Parks Admission Data Admit Date/Time: 11/18/20 17:57 Attending Provider: Uma Parks Admit Provider: Jorge Ca Primary Care Provider: Papi Yancey Other Providers: Jaspal Kumar ; Anuel Mares Other Interventions: Discharge Summary Assessment (RN) Last Done: 11/20/20 15:47
== END 2020-11-20 16:05 | disposition home or self-care (01) | DRG 189 ==
LOC: ED 13:25 → SUATTDRO 17:57 → 2S 17:57 → 3N 11-19 17:41 → 3W 11-19 20:51
DX: Z88.3 Allergy status to other anti-infective agents; Z88.7 Allergy status to serum and vaccine; Z20.822 Contact with and (suspected) exposure to COVID-19; E78.5 Hyperlipidemia, unspecified; Z87.891 Personal history of nicotine dependence; Z79.82 Long term (current) use of aspirin; G47.33 Obstructive sleep apnea (adult) (pediatric); Z90.79 Acquired absence of other genital organ(s); I10 Essential (primary) hypertension; D86.0 Sarcoidosis of lung; Z79.899 Other long term (current) drug therapy; Z88.1 Allergy status to other antibiotic agents; J96.01 Acute respiratory failure with hypoxia; M10.9 Gout, unspecified; Z79.51 Long term (current) use of inhaled steroids; Z66 Do not resuscitate; J44.1 Chronic obstructive pulmonary disease with (acute) exacerbation; C61 Malignant neoplasm of prostate; Z88.0 Allergy status to penicillin; J47.9 Bronchiectasis, uncomplicated; I27.82 Chronic pulmonary embolism